=== PATIENT | female | born 1955 | race African-American/Black ===

== ENCOUNTER 2018-11-07 08:03 | Inpatient (IN) | payer BC ==
[2018-11-07] MEDS ORDERED: Midazolam HCl 5 mg/ml Vial ONE (08:09)
[2018-11-07] MEDS ORDERED: Succinylcholine Chloride 20 MG/ML 10 ml SYRINGE FS ONE (08:09)
[2018-11-07] MEDS ORDERED: Atropine Sulfate 1 mg/10 ml Syringe ONE (08:22)
[2018-11-07] MEDS ORDERED: Norepinephrine 8 MG/0.9% NS 250 ML ONE ×2 (08:31→18:17)
[2018-11-07 08:37] LABS: Hemoglobin 13.2 g/dL (12.0-16.0); Mean Corpuscular HGB CONC 31.1 g/dL (32.0-36.0); Mean Corpuscular Hemoglobin 29.3 pg (27.0-31.0); Mean Corpuscular Volume 94.4 fL (78.0-98.0); Mean Platelet Volume 7.4 fL (7.4-10.4); Platelet Count 279 thou/uL (130-400); RBC Distribution Width 12.5 % (11.5-14.5); Red Blood Cell (RBC) Count 4.51 mill/uL (4.20-5.40); White Blood Cell (WBC) Count 17.2 thou/uL (4.8-10.8)
[2018-11-07] MEDS ORDERED: EPINEPHrine 1 MG, Admixture Fee 1 EACH in Dextrose 5% in Water 250 ML IVPB SCH (08:45)
[2018-11-07 08:47] LABS: ALT (SGPT) 89 U/L (8-55); AST (SGOT) 108 U/L (5-34); Albumin 3.6 g/dL (3.4-4.8); Alkaline Phosphatase 62 U/L (40-150); Anion Gap 19 mmol/L (10-20); BUN (Urea Nitrogen) 10 mg/dL (9.8-20.1); Bilirubin, Total 0.6 mg/dL (0.2-1.2); Calc. Creatinine Clearance 0 mL/min (70-130); Calcium 8.8 mg/dL (7.8-10.44); Carbon Dioxide 19 mmol/L (23-31); Chloride 105 mmol/L (98-107); Estimated GFR-MDRD 62; Globulin 3.4 g/dL (2.4-3.5); Potassium 3.7 mmol/L (3.5-5.1); Sodium 139 mmol/L (136-145)
[2018-11-07 08:51] LABS: Glucose 229 mg/dL (80-115)
[2018-11-07 08:56] LABS: Lymphocytes 80 % (21-51); MDiff Complete? YES; Monocytes 4 % (0-10); Neutrophil 16 % (42-75); Platelet Morphology Comment Appears Adequate
[2018-11-07 09:07] LABS: Actual Bicarbonate (HCO3a) 16.9 mEq/L (22-28); Analyzer IN Cardio ER; Base Excess (BEa) -15.3 mEq/L (-2.0 to +3.0); Calcium, Ionized 1.04 mmol/L (1.12-1.30); Carboxyhemoglobin (COHb) 0.3 gm% (0.0-3.0); Hemoglobin (Hb) 12.3 g/dL (12.0-16.0); Potassium - ABG Lab 3.46 mmol/L (3.70-5.30); Puncture Site RBA; pH, Arterial 6.98 (7.35-7.45)
--- NOTE | 2018-11-07 09:10 | RAD ---
CHEST 1 VIEW: Date: 11/07/18 HISTORY: Altered mental status, unresponsive. FINDINGS: Right central line and endotracheal tubes are in place. Heart size is within normal limits. No conflu ent pneumonia, overt edema, pleural effusion, pneumothorax, or other significant acute process. IMPRESSION: Unremarkable chest. Endotracheal tube and right central line in place. POS: [facility]
[2018-11-07 10:32] LABS: Bilirubin Negative (Negative); Blood, Urine Large (Negative); Clarity CLOUDY (Clear); Glucose, Urine (Dipstick) 500 mg/dL (Negative); Leukocyte Negative (Negative); Nitrite Negative (Negative); Protein, Urine (Dipstick) > or equal to 300 mg/dL (Neg-Trace); Specific Gravity, Urine 1.021 (1.002-1.036); Urobilinogen 0.2 mg/dL (0.2-1.0)
[2018-11-07 10:35] LABS: Bacteria/HPF 1+ HPF (None Seen)
[2018-11-07 10:37] LABS: Pathc Cast-AUWi Flag 3.55 (0-2.49)
--- NOTE | 2018-11-07 10:38 | CT ---
CT BRAIN WITHOUT CONTRAST: History: Altered mental status. Fall. FINDINGS: No evidence of infarct, hemorrhage, midline shift, or abnormal extraaxial fluid collections are seen. The ventricular size is normal and the basilar cisterns patent. The bony calvarium is intact. There is mucosal disease in the paranasal sinuses. IMPRESSION: No CT evidence of acute intracranial process. POS: [facility]
--- NOTE | 2018-11-07 10:41 | CT ---
CT CERVICAL SPINE WITHOUT CONTRAST: Date: 11/07/18 INDICATION: Altered mental status and fall. FINDINGS: The patient is intubated with gastric catheter placement. There is subsegmental volume loss involving the lung apices. Craniocervical junction appears within normal limits. There is multilevel mild to m oderate spondylosis of the cervical spine. No acute fracture or subluxation is demonstrated. IMPRESSION: No acute osseous abnormality. POS: [facility]
[2018-11-07] MEDS ORDERED: Fentanyl 100 MCG/2 ML VIAL ONE ×3 (10:47→12:21)
[2018-11-07 10:48] LABS: INR-International Normal Ratio 1.2; PTT 38.2 SEC (22.9-36.1); Prothrombin Time 15.2 SEC (12.0-14.7)
[2018-11-07 10:48] LABS: Hyaline Casts/LPF NONE SEEN LPF (0-3 Hyaline); Other Casts/LPF None Seen LPF (0-3 Hyaline)
[2018-11-07 10:49] LABS: Renal Epithelial 0-3 HPF (0-3); Transitional Epithelial 0-3 HPF (0-3)
--- NOTE | 2018-11-07 10:51 | CT ---
CTA CHEST WITH CONTRAST CT ABDOMEN AND PELVIS WITH CONTRAST CT THORACIC AND LUMBAR SPINE: Technique: Multiple axial tomograms were obtained through the chest following pulmonary angio protoco l with multiplanar reconstruction and 3D post processing. Indications: Syncope with fall. FINDINGS: There are linear shaped pulmonary emboli in both main pulmonary arteries. Pulmonary emboli extends in to both intralobular pulmonary arteries with extension into bilateral lower lobe pulmonary arteries. Extension into right middle and right upper lobe pulmonary arteries. Lung guzman show focal parenchymal opacity in the peripheral left upper lobe which could represent at electasis or patchy infiltrate. There is vascular congestion. Mild bibasilar atelectasis. 1.0 cm pleural based nodule right upper lobe with central calcification. There is a focal mass like density in the right lung base posteriorly, worrisome for neoplasm which m easures up to 2.0 cm axial plane. Nonspecific nodular density in the left lung base adjacent to the p leural surface measures 1.0 cm, possibly representing pleural based atelectasis. There is mediastinal and right hilar adenopathy. IMPRESSION: 1. Bilateral pulmonary emboli. 2. Mass density in the posterior right lung base, worrisome for neoplasm. 3. Mediastinal and hilar adenopathy. 4. Focal parenchymal density NEHA as described above, possibly representing a focal atelectasis. There are chronic lung changes as described. CT ABDOMEN AND PELVIS WITH CONTRAST: Technique: Multiple axial tomograms were obtained through the abdomen and pelvis with IV enhancement. Indications: Fall with injury. Altered mental status. FINDINGS: Exam is limited due to arm position which produces artifact. The liver is heterogeneous. Spleen is unremarkable. Pancreas is unremarkable. Kidneys are unremarkable. Aorta is normal caliber. Bowel loops are unremarkable. Uterus is enlarged with myometrial calcifications consistent with calcified fibroids. No adenopathy s een. No free fluid. No osseous abnormality. IMPRESSION: 1. Heterogeneous liver. Correlate with liver function test. 2. No acute intraabdominal process. CT THORACIC/LUMBAR SPINE: FINDINGS: CT of the mid and lower thoracic spine and lumbar spine obtained. The visualized vertebral bodies maintain normal height and alignment. Degenerative changes are seen a t L5-S1. No compression or evidence of acute fracture identified. IMPRESSION: No acute spine fracture identified. Findings related to Dr. Neumann. Code CR POS: OFF
[2018-11-07] MEDS ORDERED: Heparin 10,000 UNITS/ 10 ML VIAL SLOW IVP SCH ×2 (11:00→11:15)
[2018-11-07] MEDS ORDERED: Sodium Bicarb 50 MEQ/50 ML Abboject 8.4% SYRINGE IVP SCH (11:15)
[2018-11-07] MEDS ORDERED: Heparin 25,000 units/D5W 500 ML IVPB SCH (11:15)
[2018-11-07] MEDS ORDERED: Sodium Bicarb 50 MEQ/50 ML VIAL ONE (11:22)
[2018-11-07] MEDS ORDERED: ISOVUE-370 76%-LOCM 1 ML ONE (11:29)
[2018-11-07] MEDS ORDERED: methylPREDNISolone Sod Succ/PF 125 MG/2 ML VIAL IVP SCH (12:00)
--- NOTE | 2018-11-07 12:02 | CON ---
DATE OF CONSULTATION: 11/07/2018 HISTORY OF PRESENT ILLNESS: Cherise Macias is a 63-year-old female, who was brought in by EMS after she was found down at home by her granddaughter. Daughter from [place] arrived. She had a mass in the area of the left knee, which was biopsied, found to be sarcoma. She went to [facility] for further workup and found to have a right lung nodule for which she underwent a biopsy on Tuesday last week, four days ago. She then was at her house. According to the daughter, granddaughter found that she was unresponsive and blood coming out of the mouth. 911 ambulance was called and they came to the ER, where apparently she was found to be in pulseless electrical activity rhythm. Please review Dr. Neumann, ER physician's extensive note. She now received multiple rounds of epinephrine. She was started on epinephrine drip and Levophed drip. CT chest shows bilateral pulmonary emboli/lung mass right We were in the process of giving 10 mgs of_ tPA, she is already on heparin drip. PAST MEDICAL HISTORY: The daughter says the past medical history is pertinent for hypothyroidism, hypertension, hyperlipidemia. PAST SURGICAL HISTORY: Previous surgeries of colon. Biopsy of the leg. Recent lung biopsy. CHRONIC MEDICATIONS: 1. Spironolactone 25. 2. Tramadol 50. HABITS: Tobacco, none. ALLERGIES: NONE. 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 REVIEW OF SYSTEMS: Otherwise unobtainable. PHYSICAL EXAMINATION: VITAL SIGNS: In the ER, she is intubated on the vent. Blood pressure is still 90/80 on the Levophed. Pulse is 80, respiratory rate is 20. HEENT: Pupils are equal. She is having some tonic activity. CHEST: Bilateral rhonchi. CARDIAC: Sinus tach. ABDOMEN: Soft. NEUROLOGIC: Unresponsive. LABORATORY DATA: White count is 17,000, H and H are 13 and 42, platelet count is normal. She has 16 neutrophils. PO2 was 497, pCO2 Lytes are normal. Lactic acid elevated. Glucose 229. IMPRESSION: 1. Bilateral pulmonary emboli. 2. Status post cardiopulmonary arrest, pulseless electrical activity. 3. Probably anoxic injury. 4. 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 Await results from [facility] biopsy. 5. Low-dose tPA, IV heparin. Neb treatments, steroids supportive care. 6. Transfer to the ICU. Prognosis is guarded. Serial exam. We will get neurological input in the next 24 to 48 hours along with an EEG. This is a 45-minute critical care time. Job ID: [id number] [facility]
--- NOTE | 2018-11-07 12:17 | HP ---
CHIEF COMPLAINT: Loss of consciousness. 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 In her workup, she also was noted to have a right lung nodule that was concerning for the possibility of either a new primary or metastatic lesion and the recommendation was for biopsy. The patient had the biopsy performed by Inter[facility] Radiology 5 days ago. The patient was actually at home this morning with her granddaughter. She was holding I believe her great grandchild and had put some food in the microwave, walked back into her room when her granddaughter heard grunting and saw the baby crawling on the floor and crying. When she went in to investigate, she found the patient lying on the floor unconscious with blood coming from her mouth. She called 911. On arrival, apparently the patient was breathing spontaneously and had a pulse. She was transported to the emergency department and when coming through the doors, went into [facility] and coded. She required CPR and code drugs and did ultimately get return of spontaneous circulation, but is requiring pressors. She apparently responded better to epinephrine and Levophed. The patient has not recovered any form of consciousness since that time. I did speak with Dr. Macdonald. I spoke with her daughter and Dr. Macdonald faxed some records from [facility] to assist with gathering the history. REVIEW OF SYSTEMS: Unobtainable. PAST MEDICAL HISTORY: Per the records, the patient has a history of hypertension, hyperlipidemia, and hypothyroidism. PAST SURGICAL HISTORY: Notable for colon polyps endoscopically resected. She has had the biopsy of the knee lesion and the lung lesion. FAMILY HISTORY: Records indicate her father is living and her mother is living with hypertension. SOCIAL HISTORY: The patient is a nonsmoker. Her daughter is here from [place]. However, the daughter states that she is unable to even go in the room and see her mother in this condition. CURRENT MEDICATIONS: 1. Tramadol p.r.n. 2. Spironolactone 25 mg p.o. daily. ALLERGIES: NONE. PHYSICAL EXAMINATION: VITAL SIGNS: Most recent BP 192/78, pulse 95, temperature is 97.0, and respirations 24. GENERAL APPEARANCE: Age-appropriate female, who is intubated. She is not interactive. She appears unresponsive. She does have some spontaneous movement of her feet, which is more of a jerking or twitching and occasionally will raise her eyelids as well. HEENT: ET tube is in place. The patient's pupils are mid point and sluggish. Her eyes do not track nor focus. NECK: Supple and symmetric. HEART: Regular without murmurs. Borderline tachycardic. LUNGS: Clear bilaterally with no wheeze or rales. ABDOMEN: Soft and nondistended. Diminished bowel sounds. No masses or organomegaly. EXTREMITIES: There is a large lesion with some slight dark discoloration over the medial aspect of the left knee. This is not erythematous or inflamed. It is approximately 5 x 8 inches in size. There is no other cyanosis, clubbing, or edema. LABORATORY DATA: White count 17.2, hemoglobin 13.2, platelets 279, neutrophils 16, and lymphocytes 80. INR 1.2 and PTT 38.2. ABG, pH was 6.98, pCO2 was 73, and pO2 was 497. Sodium 139, potassium 3.7, chloride 105, CO2 of 19, BUN 10, creatinine 0.08, GFR 62, glucose 229, lactic acid 9.2, calcium 8.8, AST 108, and ALT 89. Troponin 0.01. Urinalysis shows significant protein and glucose, large blood, 11 to 20 red cells, greater than 50 white cells, 4 to 6 epithelials, and 1+ bacteria. Chest x-ray notable for the ET tube in central line. CT of the brain, no intracranial process. CT chest, abdomen, and pelvis shows bilateral pulmonary emboli. Mass density in the posterior right lung base consistent with neoplasm. Mediastinal and hilar lymphadenopathy. Focal parenchymal density in the left upper lobe, possibly representing atelectasis of the liver, is noted to be heterogeneous. CT of the C-spine was unremarkable. IMPRESSION AND PLAN: 1. Cardiac arrest. The patient had a cardiac arrest on arrival to the emergency department. She has had associated hypoxic respiratory failure. She is intubated and on pressors. She did have a return of spontaneous circulation and apparently was breathing spontaneously as well. She will be admitted to the ICU. Pulmonary/Critical Care will be consulted. 2. Bilateral pulmonary emboli. Dr. Strong has recommended a dose of tissue plasminogen activator. She was subsequently started on anticoagulation per his recommendations. 3. Hypertension. The patient is currently hypotensive due to the cardiac arrest. We will continue to monitor. 4. Hyperglycemia. We will start Accu-Cheks and sliding scale insulin. 5. Sarcoma of the left knee, high-grade, undifferentiated. The treatment has not been initiated for that as of yet. 6. Right lung mass, unclear if this was metastatic disease or a second primary biopsy was performed. No results of that have been discussed with the family as of yet. 7. Possible urinary tract infection. The patient is covered with antibiotics. We will continue to follow up on cultures. 8. Elevated liver enzymes with a heterogeneous liver. Etiology is unclear. Secondary issue to be investigated when she is more stabilized. 9. Disposition. Unfortunately, the patient appears to possibly have suffered some anoxic brain injury. We will continue supportive care and reassess in 24 hours. The patient's daughter is having a difficult time as expected. She cannot go in the room and see the patient in this condition. We will consult Palliative Care to see if they can be a support to her and the remainder of the patient's family. Job ID: [id number]
[2018-11-07] MEDS ORDERED: Bacteriostatic Water 30 ML VIAL FS PRN (14:47)
[2018-11-07] MEDS ORDERED: EPINEPHrine 1 MG/10 ML Abboject SYRINGE ONE (15:00)
[2018-11-07] MEDS ORDERED: Sodium Bicarb 50 MEQ/50 ML Abboject 8.4% SYRINGE ONE (15:00)
[2018-11-07] MEDS: Cefepime 1 GM in Sodium Chloride 0.9% 100 ML IVPB SCH (15:04)
[2018-11-07] MEDS ORDERED: Lorazepam 2 MG/ML VIAL ONE (16:01)
[2018-11-07 16:02] LABS: Lactic Acid 3.6 mmol/L (0.5-2.2)
[2018-11-07] MEDS ORDERED: Lorazepam 2 MG/ML VIAL SLOW IVP SCH (16:15)
[2018-11-07] MEDS ORDERED: Hydrocortisone Sod Succ/PF 100 mg/2 ml Vial IVP SCH (18:00)
[2018-11-07] MEDS: methylPREDNISolone Sod Succ 40 MG VIAL IVP SCH ×2 (18:24→22:47)
[2018-11-07] MEDS ORDERED: Norepinephrine 8 MG/250 ML BAG IVPB PRN (18:24)
[2018-11-07 18:40] LABS: PTT Greater than 250.0 SEC (22.9-36.1)
[2018-11-07] MEDS: Famotidine/PF 20 mg/2ml Vial SLOW IVP SCH (21:05)
[2018-11-07 21:17] LABS: PTT 183.1 SEC (22.9-36.1)
[2018-11-07] MEDS ORDERED: Acetaminophen 650 MG Suppository PR PRN (21:51)
[2018-11-07] MEDS ORDERED: Acetaminophen 1,000 MG in Premix Bag 1 BAG IVPB SCH (22:00)
[2018-11-08] MEDS: Cefepime 1 GM in Sodium Chloride 0.9% 100 ML IVPB SCH ×2 (03:02→14:19)
[2018-11-08] MEDS: Lorazepam 2 MG/ML VIAL SLOW IVP PRN ×2 (03:50→23:49)
[2018-11-08 05:20] LABS: #Lymphocytes 0.9 thou/uL (1.20-3.40); #Monocytes 0.6 thou/uL (0.11-0.59); #Neutrophils 14.5 thou/uL (1.40-6.50); %Eosinophils 0.1 % (0.0-10.0); %Lymphocytes 5.6 % (21.0-51.0); %Monocytes 3.7 % (0.0-10.0); %Neutrophils 90.5 % (42.0-75.0); Hemoglobin 12.6 g/dL (12.0-16.0); Mean Corpuscular HGB CONC 32.7 g/dL (32.0-36.0); Mean Corpuscular Hemoglobin 29.4 pg (27.0-31.0); Mean Platelet Volume 6.7 fL (7.4-10.4); Platelet Count 237 thou/uL (130-400); RBC Distribution Width 12.7 % (11.5-14.5); Red Blood Cell (RBC) Count 4.29 mill/uL (4.20-5.40)
[2018-11-08 05:53] LABS: Anion Gap 15 mmol/L (10-20); BUN (Urea Nitrogen) 15 mg/dL (9.8-20.1); Calc. Creatinine Clearance 78 mL/min (70-130); Calcium 8.3 mg/dL (7.8-10.44); Carbon Dioxide 23 mmol/L (23-31); Chloride 107 mmol/L (98-107); Estimated GFR-MDRD 61; Glucose 148 mg/dL (80-115); Sodium 142 mmol/L (136-145)
[2018-11-08 05:57] LABS: Potassium 2.9 mmol/L (3.5-5.1)
[2018-11-08] MEDS ORDERED: Potassium Chloride 40 MEQ in Premix Bag 1 BAG IVPB SCH (06:15)
[2018-11-08] MEDS: methylPREDNISolone Sod Succ 40 MG VIAL IVP SCH ×4 (06:23→23:18)
[2018-11-08 07:03] LABS: Base Excess (BEa) 0.8 mEq/L (-2.0 to +3.0); Calcium, Ionized 1.09 mmol/L (1.12-1.30); Carboxyhemoglobin (COHb) 0.8 gm% (0.0-3.0); Hemoglobin (Hb) 14.5 g/dL (12.0-16.0); O2 Tension (PaO2) 97.2 mmHg (> 80.0); Potassium - ABG Lab 2.89 mmol/L (3.70-5.30)
[2018-11-08 07:04] LABS: CO2 Tension 23.4 mmHg (35.0-45.0); pH, Arterial 7.57 (7.35-7.45)
[2018-11-08 07:05] LABS: Puncture Site LR
[2018-11-08] MEDS: Famotidine/PF 20 mg/2ml Vial SLOW IVP SCH ×2 (07:57→20:56)
[2018-11-08] MEDS: Enoxaparin Sodium 100 MG/ML SYRINGE SC SCH ×2 (08:17→20:56)
--- NOTE | 2018-11-08 08:28 | RAD ---
CHEST ONE VIEW: HISTORY: Respiratory insufficiency. COMPARISON: 11/07/2018 FINDINGS: Life support tubes remain in place. Bilateral vascular congestion. No new confluent lobar pneumonia . IMPRESSION: 1. Bilateral vascular congestion. 2. No new confluent pneumonia. 3. Probable small pleural effusions. Continued short-term followup. POS: OFF
[2018-11-08] MEDS: Pot Chloride/Pot Bicarb/Cit Ac 25 mEq Effervescent Tablet PO SCH (08:49)
[2018-11-08] MEDS ORDERED: Prevnar 13-Val Conj/PF 0.5 ML SYRINGE IM ONE (09:00)
[2018-11-08] MEDS ORDERED: Enoxaparin Sodium 40 MG/0.4 ML SYRINGE SC SCH (09:00)
[2018-11-08] MEDS ORDERED: Enoxaparin Sodium 80 MG/0.8 ML SYRINGE SC SCH ×2 (09:00)
--- NOTE | 2018-11-08 09:34 | PRG ---
DATE OF SERVICE: 11/08/2018 SUBJECTIVE: Cherise Veloz this morning intubated in the vent, unresponsive, no sedation. Respiratory rate is set at 24. She is not assisting. Pupils are 2 mm. Eyes are deviated upwards. She is doing some decerebrate posturing. OBJECTIVE: VITAL SIGNS: Blood pressure 131/76, pulse 80. Afebrile. Sats 100% . CHEST: Decreased breath sounds. Bilateral rhonchi. CARDIAC: Sinus tach. ABDOMEN: Soft without masses. LABORATORY DATA:PTT_ was 237 this morning. PO2 was 97, pCO2 23, pH 7.57 at a rate of 24, 40%. Potassium is 2.9, otherwise glucose is normal. Magnesium is low at 1.5. X-ray shows haziness in the left chest. IMPRESSION: 1. Bilateral pulmonary emboli. 2. Status post PEA. 3. Sarcoma with possible mets to the lung. 4. Severe anoxic injury. _vent being adjusted. We will start nutrition. Palliative care on board. Await results of Neurology and EEG. Prognosis is grave. In the meantime, supportive care, PT. One-half hour of critical time. Job ID: [id number] [facility]
--- NOTE | 2018-11-08 10:18 | PRG ---
DATE OF SERVICE: 11/08/2018 SUBJECTIVE: The patient is seen and examined at the bedside. She is not sedated. She does not respond to me at all. She is orally intubated. OBJECTIVE: VITAL SIGNS: Blood pressure is 117/61, pulse is 77, respiratory rate is 17, O2 saturation is 100% on the vent. HEENT: Her pupils are quite small. They are not very reactive to light. Sclerae nonicteric. Conjunctivae pinkish. LUNGS: Breath sounds diminished at both bases. HEART: S1 and S2 normal. No S3. No S4. ABDOMEN: Soft and nondistended. Bowel sounds present. EXTREMITIES: No clubbing, cyanosis, or edema. NEUROLOGICAL: She does not respond to my stimuli. Her all 4 extremities are flaccid. There is no any motor activity present during my visit of spontaneous etiology. LABORATORY DATA: White count of 16.2, hemoglobin of 12.6, hematocrit 38.6, platelet count is 237,000. APTT 78.6. ABGs showed pH of 7.57, pCO2 of 23.4, and pO2 of 97.2. Sodium of 142, potassium 2.9, chloride 107, CO2 of 23, BUN 15, creatinine 1.09, glucose 148, magnesium 1.5. Microbiology, none. IMPRESSION: 1. Status post cardiopulmonary arrest. 2. Bilateral pulmonary emboli. 3. Sarcoma with possible metastasis to the lung. Apparently, the patient had biopsy done at [facility] a few days ago. 4. Probably anoxic injury. PLAN: The patient will remain in intensive care unit. We will continue her current regimen. She was just switched to Lovenox by Dr. Sanchez Strong. As she was given Ativan IV push for possible seizure activity during the night, we will continue her Keppra IV. Neurology consultation is pending. We will continue steroids IV and cefepime 1 g every hours. Job ID: [id number]
[2018-11-08] MEDS: Sodium Chloride 0.9% 1,000 ML IV SCH (14:55)
[2018-11-08] MEDS ORDERED: Potassium Bicarbonate/Cit Ac 25 MEQ TAB PO SCH (22:15)
[2018-11-08] MEDS ORDERED: Pot Chloride/Pot Bicarb/Cit Ac 25 mEq Effervescent Tablet PO SCH (22:15)
[2018-11-09] MEDS: Cefepime 1 GM in Sodium Chloride 0.9% 100 ML IVPB SCH ×2 (02:38→14:07)
[2018-11-09] MEDS ORDERED: Propofol 1,000 MG/100 ML VIAL IV ONE (03:00)
[2018-11-09] MEDS ORDERED: Propofol 1,000 MG/100 ML VIAL IV PRN (03:01)
[2018-11-09] MEDS ORDERED: Propofol BOLUS 1,000 MG/100 ML VIAL IV PRN (03:01)
[2018-11-09 05:16] LABS: Band 1 % (5-11); Hemoglobin 12.3 g/dL (12.0-16.0); Lymphocytes 2 % (21-51); MDiff Complete? YES; Mean Corpuscular HGB CONC 33.5 g/dL (32.0-36.0); Mean Corpuscular Volume 89.8 fL (78.0-98.0); Mean Platelet Volume 7.4 fL (7.4-10.4); Monocytes 1 % (0-10); Neutrophil 96 % (42-75); Platelet Count 255 thou/uL (130-400); Platelet Morphology Comment Appears Adequate; RBC Distribution Width 12.8 % (11.5-14.5); RBC Morphology Normal; Red Blood Cell (RBC) Count 4.09 mill/uL (4.20-5.40)
[2018-11-09 05:26] LABS: Anion Gap 14 mmol/L (10-20); BUN (Urea Nitrogen) 15 mg/dL (9.8-20.1); Calc. Creatinine Clearance 88 mL/min (70-130); Calcium 8.6 mg/dL (7.8-10.44); Carbon Dioxide 24 mmol/L (23-31); Chloride 109 mmol/L (98-107); Estimated GFR-MDRD 75; Glucose 159 mg/dL (80-115); Potassium 3.8 mmol/L (3.5-5.1); Sodium 143 mmol/L (136-145)
[2018-11-09 06:32] LABS: Actual Bicarbonate (HCO3a) 24.4 mEq/L (22-28); Base Excess (BEa) 1.2 mEq/L (-2.0 to +3.0); CO2 Tension 34.5 mmHg (35.0-45.0); Calcium, Ionized 1.13 mmol/L (1.12-1.30); Potassium - ABG Lab 3.88 mmol/L (3.70-5.30); pH, Arterial 7.47 (7.35-7.45)
[2018-11-09 07:19] LABS: ALV-art Gradient 157.075 (0-20); Puncture Site LRA
[2018-11-09] MEDS: methylPREDNISolone Sod Succ 40 MG VIAL IVP SCH ×4 (07:19→23:55)
--- NOTE | 2018-11-09 07:41 | RAD ---
Exam: Chest one view: HISTORY: Respiratory insufficiency COMPARISON: 11/08/2018 FINDINGS: Life support tubes remain in place. Bilateral vascular congestion with some scattered interstitial an d minimal alveolar opacity changes in both lungs somewhat more prominent than on the 11/08/2018 study and definitely more marked than on the 11/07/2018 study. No new confluent lobar pneumonia. IMPRESSION: Progressive vascular congestion and interstitial and alveolar opacity changes particularly in the mid and lower lung zones including the left base. Continued short-term follow-up.
--- NOTE | 2018-11-09 08:30 | PRG ---
DATE OF SERVICE: 11/09/2018 SUBJECTIVE: This morning intubated in the vent. She was agitated last night with elevated heart rate and blood pressure. She was on diprivan. OBJECTIVE: VITAL SIGNS: Blood pressure is still elevated at 170/90, pulse is 100, saturations 100%, and respirations are 22. I's and O's have been good, 2877 in and 2780 out. NEUROLOGICAL: Pupils are equal. She is decerebrating. CHEST: Extensive rhonchi. CARDIAC: Sinus tach. ABDOMEN: Soft. LABORATORY DATA: White count 20,000, H and H 12 and 36, platelet count is normal. She had a pO2 of 85, pCO2 35, pH 7.47, rate of 14, 40%. Lytes are normal. IMPRESSION: 1. Status post pulseless electrical activity with anoxic brain injury, poor EEG findings. 2. Bilateral pulmonary emboli. 3. Sarcoma with probably _lung met// pleural effusion and hypertension. 4. Starting low-dose Norvasc and home medication, still on Keppra. Continue supportive care. We will try minimize sedation as possible. Still awaiting input from Neurology. 5. Prognosis, remains grave. We will follow. One-half hour of critical time. Job ID: [id number] [facility]
[2018-11-09] MEDS: Famotidine/PF 20 mg/2ml Vial SLOW IVP SCH ×2 (08:42→21:33)
[2018-11-09] MEDS: Potassium Bicarbonate/Cit Ac 25 MEQ TAB PO SCH ×2 (08:42→21:34)
[2018-11-09] MEDS: Spironolactone 25 MG TAB PO SCH (08:42)
[2018-11-09] MEDS: Enoxaparin Sodium 100 MG/ML SYRINGE SC SCH ×2 (08:43→21:33)
[2018-11-09] MEDS ORDERED: Amlodipine 5 MG TAB PO SCH (09:00)
[2018-11-09] MEDS ORDERED: Pot Chloride/Pot Bicarb/Cit Ac 25 mEq Effervescent Tablet PO SCH (09:00)
[2018-11-09] MEDS: Sodium Chloride 0.9% 1,000 ML IV SCH (12:37)
--- NOTE | 2018-11-09 15:14 | PRG ---
DATE OF SERVICE: 11/09/2018 SUBJECTIVE: The patient is seen and examined at the bedside. She is still in the same room in A5 ICU. She is not sedated. She does not show any improvement. She is not waking up. There were no any unexpected events overnight. OBJECTIVE: VITAL SIGNS: Blood pressure is 177/90, pulse is 97, respiratory rate is 20, O2 saturation is 99. She is on a ventilator. She is not sedated. GENERAL: There is no any contact with the patient. She is quite flaccid in her 4 extremities. She is orally intubated. HEENT: Her pupils are normal size. They do not respond to the light much. LUNGS: Clear. HEART: S1 and S2 normal. ABDOMEN: Soft, nondistended. EXTREMITIES: No clubbing, cyanosis, or edema. Did not show any improvement in the last 24 hours. LABORATORY DATA: Labs showed white count of 23,000, hemoglobin 12.3, hematocrit 36.7, platelet count is 255, neutrophils 96%. ABGs, pH of 7.47, pCO2 of 34.5, pO2 of 85.0, base excess is 1.2. Sodium of 143, potassium 3.8, chloride 109, CO2 of 24, BUN 15, creatinine 0.91, glycemia 159, calcium 8.6. IMAGING STUDIES: Chest x-ray was done this morning and it showed progressive vascular congestion and interstitial alveolar opacity changes particularly in the mid and lower lung zones involving the left base. IMPRESSION: 1. Status post cardiopulmonary arrest. 2. Bilateral pulmonary emboli. 3. Sarcoma with possible metastasis to the lung, status post biopsy at [facility]. 4. Probably anoxic injury. PLAN: We are going to continue dose of Lovenox. We will continue her antibiotic, which is cefepime. We will continue Solu-Medrol IV q.6 hours. We will continue Keppra IV, and prognosis is very poor. Job ID: [id number]
--- NOTE | 2018-11-09 17:28 | EEG ---
Referring Physician: Bennie GOMEZ EEG # [id number] TEST TYPE: ROUTINE PORTABLE INPATIENT REPORT: AN EEG USING THE INTERNATIONAL TEN-TWENTY SYSTEM OF ELECTRODE PLACEMENT WAS PERFORMED. The background activity consists of high amplitude bursts of dysrhythmic discharges seen over both hemispheres followed by periods of severe cerebral suppression. This continued throughout the study. Photic stimulation was unremarkable. IMPRESSION: THIS EEG IS CONSISTENT WITH A BURST-SUPPRESSION PATTERN WHICH CARRIES A VERY POOR PROGNOSIS FOLLOWING ANOXIC BRAIN INJURY. Car Cleaner: SUHA Pecan Huller: EEG.[email or web address] GUTIERREZ
--- NOTE | 2018-11-09 22:04 | CON ---
DATE OF CONSULTATION: 11/09/2018 CONSULTING PHYSICIAN: Hospitalist Service. IMPRESSION: Anoxic brain injury, likely leading to a chronic vegetative state. PLAN: As per the family's wishes. HISTORY OF PRESENT ILLNESS: Ms. Veloz is a 63-year-old woman who came in after a cardiac arrest at home. She was resuscitated and intubated. Unfortunately, she has failed to regain consciousness. Cardiovascular status has been stable metabolically. She has also been reasonably stable as well. Had an EEG done yesterday which showed a burst suppression pattern. PHYSICAL EXAMINATION: On exam, she has a positive blink and corneal reflex. She has a gag response. She has extensor posturing to pain. She has some spontaneous respirations. She is not having any seizure-like activity. Vital signs have otherwise been stable. SUMMARY: This is a 63-year-old woman with anoxic brain injury with burst suppression pattern. She has maintained some brainstem reflexes. She is probably going to enter a chronic vegetative state with continued support. Job ID: [id number]
[2018-11-10] MEDS: Cefepime 1 GM in Sodium Chloride 0.9% 100 ML IVPB SCH ×2 (02:20→14:39)
[2018-11-10 05:05] LABS: Anion Gap 14 mmol/L (10-20); BUN (Urea Nitrogen) 19 mg/dL (9.8-20.1); Calc. Creatinine Clearance 92 mL/min (70-130); Carbon Dioxide 24 mmol/L (23-31); Chloride 106 mmol/L (98-107); Estimated GFR-MDRD 79; Glucose 179 mg/dL (80-115); Potassium 3.7 mmol/L (3.5-5.1); Sodium 140 mmol/L (136-145)
[2018-11-10 05:14] LABS: Band 4 % (5-11); Hemoglobin 12.5 g/dL (12.0-16.0); Lymphocytes 5 % (21-51); MDiff Complete? YES; Mean Corpuscular HGB CONC 32.5 g/dL (32.0-36.0); Mean Corpuscular Hemoglobin 29.5 pg (27.0-31.0); Mean Corpuscular Volume 90.6 fL (78.0-98.0); Mean Platelet Volume 7.9 fL (7.4-10.4); Monocytes 7 % (0-10); Neutrophil 84 % (42-75); Platelet Count 284 thou/uL (130-400); RBC Distribution Width 12.8 % (11.5-14.5); Red Blood Cell (RBC) Count 4.25 mill/uL (4.20-5.40); White Blood Cell (WBC) Count 22.9 thou/uL (4.8-10.8)
[2018-11-10] MEDS: methylPREDNISolone Sod Succ 40 MG VIAL IVP SCH ×4 (06:19→23:32)
[2018-11-10 06:45] LABS: Base Excess (BEa) 0.4 mEq/L (-2.0 to +3.0); CO2 Tension 27.3 mmHg (35.0-45.0); Calcium, Ionized 1.11 mmol/L (1.12-1.30); Carboxyhemoglobin (COHb) 0.5 gm% (0.0-3.0); Hemoglobin (Hb) 12.6 g/dL (12.0-16.0); O2 Tension (PaO2) 104.1 mmHg (> 80.0); Potassium - ABG Lab 3.76 mmol/L (3.70-5.30); pH, Arterial 7.53 (7.35-7.45)
[2018-11-10 06:51] LABS: ALV-art Gradient 111.325 (0-20); Puncture Site LRA
--- NOTE | 2018-11-10 07:55 | RAD ---
XR Chest 1 View Portable History: Respiratory failure COMPARISON: Previous day FINDINGS: Mild interval improvement in the aeration of the lung guzman is seen. Line and tube placements are un changed.
--- NOTE | 2018-11-10 08:53 | PRG ---
DATE OF SERVICE: 11/10/2018 SUBJECTIVE: This morning, the patient is alert and responsive. Neurology saw the patient yesterday. Discussed with family at length that overall prognosis is poor. She has burst pattern on the EEG suggesting severe anoxic injury. OBJECTIVE: VITAL SIGNS: Blood pressure is 175/72, pulse 66, saturation 100%, and respiratory rate 23. CHEST: Bilateral rhonchi and wheezing. CARDIAC: Normal S1 and S2. No gallops. ABDOMEN: No masses. LABORATORY DATA: PO2 is 104, pCO2 27%, . Lytes are normal. DIAGNOSTIC STUDIES: X-ray shows slight cephalization. IMPRESSION: 1. Anoxic injury. 2. Pulmonary embolism. 3. Chronic obstructive pulmonary disease. 4. Seizure disorder. PLAN: At this stage, unfortunately nothing additional to offer, continue supportive care. If family continues to want everything to be done, consider a trach and PEG next week. Meantime, she is on Lovenox. I am going to consider switching over to Eliquis in the next several days. Prognosis is grave. This is a one-half hour of critical time. Job ID: [id number]
[2018-11-10] MEDS: Amlodipine 5 MG TAB PO SCH ×2 (09:54→20:32)
[2018-11-10] MEDS: Famotidine/PF 20 mg/2ml Vial SLOW IVP SCH ×2 (09:55→20:49)
[2018-11-10] MEDS: Spironolactone 25 MG TAB PO SCH (09:55)
[2018-11-10] MEDS: Enoxaparin Sodium 100 MG/ML SYRINGE SC SCH ×2 (09:55→20:34)
[2018-11-10] MEDS: Potassium Bicarbonate/Cit Ac 25 MEQ TAB PO SCH ×2 (10:00→20:49)
[2018-11-10] MEDS: Sodium Chloride 0.9% 1,000 ML IV SCH (10:24)
[2018-11-10] MEDS ORDERED: Pancrelipase DR 12000 1 CAP PER TUBE PRN (11:13)
[2018-11-10] MEDS ORDERED: Sodium Bicarbonate Tab 325 MG TAB PO PRN (11:14)
--- NOTE | 2018-11-10 13:03 | PDOC.PN ---
- Subjective Encounter Start Date: 11/10/18 Encounter Start Time: 10:15 Patient seen and examined. pt is intubated, on vent. No overnight events - Objective Resuscitation Status - Order Detail: 11/07/18 11:19 Resuscitation Status Routine Resuscitation Status: FULL: Full Resuscitation MAR Reviewed: Yes Vital Signs & Weight: Vital Signs (12 hours) Pulse Resp BP 11/10/18 12:00 20 11/10/18 10:56 74 157/81 H 11/10/18 10:00 23 H 11/10/18 09:54 64 155/73 H 11/10/18 08:00 24 H 11/10/18 06:27 66 175/72 H 11/10/18 06:00 26 H 11/10/18 04:00 25 H 11/10/18 02:26 95 11/10/18 02:00 31 H Weight Admit Weight 212 lb 15.465 oz Weight 199 lb 1.239 oz Most Recent Monitor Data Heart Rate from ECG 72 NIBP 169/78 NIBP BP-Mean 108 Respiration from ECG 20 SpO2 99 I&O: 11/09/18 11/10/18 11/11/18 06:59 06:59 06:59 Intake Total 2877.5 2264 65 Output Total 2780 2995 Balance 97.5 -731 65 Result Diagrams: 11/10/18 03:45 11/10/18 03:45 Radiology Reviewed by me: Yes (chest xray reviewed) EKG Reviewed by me: Yes (nsr) Phys Exam - Physical Examination Constitutional: NAD on vent Neck: no JVD, supple Respiratory: no wheezing, no rales, no rhonchi Cardiovascular: RRR, no significant murmur, no rub Gastrointestinal: soft, no distention, positive bowel sounds Musculoskeletal: no edema, pulses present Lymphatic: no nodes Skin: no rash, normal turgor Dx/Plan (1) Acute respiratory failure with hypoxemia Code(s): J96.01 - ACUTE RESPIRATORY FAILURE WITH HYPOXIA Status: Acute (2) Anoxic brain damage Status: Acute (3) Bilateral pulmonary embolism Code(s): I26.99 - OTHER PULMONARY EMBOLISM WITHOUT ACUTE COR PULMONALE Status : Acute (4) Hypokalemia Code(s): E87.6 - HYPOKALEMIA Status: Acute (5) Hypomagnesemia Code(s): E83.42 - HYPOMAGNESEMIA Status: Acute (6) Lactic acidosis Code(s): E87.2 - ACIDOSIS Status: Acute (7) Leucocytosis Code(s): D72.829 - ELEVATED WHITE BLOOD CELL COUNT, UNSPECIFIED Status: Acute (8) Sudden cardiac arrest Code(s): I46.9 - CARDIAC ARREST, CAUSE UNSPECIFIED Status: Acute (9) Transaminitis Code(s): R74.0 - NONSPEC ELEV OF LEVELS OF TRANSAMNS & LACTIC ACID DEHYDRGNSE Status: Acute (10) Obesity (BMI 30.0-34.9) Code(s): E66.9 - OBESITY, UNSPECIFIED Status: Chronic - Plan cont current plan of care * continue vent support * medication reviewed as below * symptomatic treatment * continue heparin drip per protocol. * prognosis is guarded * supportive care Review of Systems - Review of Systems Other: unable to review as pt is not responsive and on vent - Medications/Allergies Allergies/Adverse Reactions: Allergies Allergy/AdvReac Type Severity Reaction Status Date / Time No Known Drug Allergies Allergy Verified 11/07/18 15:31 Medications: Current Medications Acetaminophen (Tylenol) 650 mg CO Q6H PRN PRN Reason: Fever Last Admin: 11/10/18 02:32 Dose: 650 mg Amlodipine Besylate (Norvasc) 5 mg PO BID [facility] Last Admin: 11/10/18 09:54 Dose: 5 mg Lipase/Protease/Amylase ([place] [id number]) 1 cap PER TUBE ASDIR PRN PRN Reason: TUBE OCCLUSION TX Enoxaparin Sodium (Lovenox) 100 mg SC 0900,2100 [facility] Last Admin: 11/10/18 09:55 Dose: 100 mg Famotidine (Pepcid) 20 mg SLOW IVP BID [facility] Last Admin: 11/10/18 09:55 Dose: 20 mg Epinephrine 1 mg/Miscellaneous Medication 1 each/ Dextrose/Water 251 mls @ 0 mls/hr IVPB INF [facility]; Protocol Cefepime HCl 1 gm/ Sodium (Chloride) 100 mls @ 200 mls/hr IVPB 0300,1500 [facility] Last Admin: 11/10/18 02:20 Dose: 100 mls Levetiracetam 500 mg/ Device 100 mls @ 200 mls/hr IVPB BID [facility] Last Admin: 11/10/18 09:58 Dose: 100 mls Norepinephrine Bitartrate (Levophed) 250 mls @ 0 mls/hr IVPB INF PRN; Protocol PRN Reason: KEEP SBP => 90 Sodium Chloride (Normal Saline 0.9%) 1,000 mls @ 50 mls/hr IV .Q20H [facility] Last Admin: 11/10/18 10:24 Dose: 1,000 mls Lorazepam (Ativan) 2 mg SLOW IVP Q4H PRN PRN Reason: Anxiety/Agitation Last Admin: 11/08/18 23:49 Dose: 2 mg Methylprednisolone Sodium Succinate (Solu-Medrol) 40 mg IVP Q6HR [facility] Last Admin: 11/10/18 11:59 Dose: 40 mg Potassium Bicarbonate/Citric Acid (K-Vescent) 25 meq PO BID [facility] Last Admin: 11/10/18 10:00 Dose: 25 meq Propofol (Diprivan) 1,000 mg IV INF PRN; Protocol PRN Reason: TO ACHIEVE GOAL RASS Stop: 12/09/18 03:01 Propofol (Diprivan Bolus) 20 mg IV Q5MIN PRN PRN Reason: BREAKTHROUGH AGITATION Stop: 12/09/18 03:01 Sodium Bicarbonate (Bicarbonate, Sodium) 650 mg PO ASDIR PRN PRN Reason: TUBE OCCLUSION TX Sodium Chloride (Flush - Normal Saline) 10 ml IVF Q12HR [facility] Last Admin: 11/10/18 09:55 Dose: 10 ml Sodium Chloride (Flush - Normal Saline) 10 ml IVF PRN PRN PRN Reason: Saline Flush Spironolactone (Aldactone) 25 mg PO DAILY [facility] Last Admin: 11/10/18 09:55 Dose: 25 mg Sterile Water (Bacteriostatic Water) 1 ml FS PRN PRN PRN Reason: RECONSTITUTION
[2018-11-10] MEDS ORDERED: Labetalol HCl 100 MG/20 ML VIAL SLOW IVP PRN (17:46)
[2018-11-10] MEDS: Labetalol HCl 100 MG/20 ML VIAL SLOW IVP PRN (22:14)
[2018-11-11] MEDS: Cefepime 1 GM in Sodium Chloride 0.9% 100 ML IVPB SCH ×2 (02:20→15:22)
[2018-11-11] MEDS: Sodium Chloride 0.9% 1,000 ML IV SCH ×2 (02:30→22:14)
[2018-11-11 04:54] LABS: #Lymphocytes 0.8 thou/uL (1.20-3.40); #Monocytes 1.1 thou/uL (0.11-0.59); #Neutrophils 14.9 thou/uL (1.40-6.50); %Eosinophils 0.1 % (0.0-10.0); %Lymphocytes 4.7 % (21.0-51.0); %Monocytes 6.4 % (0.0-10.0); %Neutrophils 88.8 % (42.0-75.0); Hemoglobin 12.1 g/dL (12.0-16.0); Mean Corpuscular HGB CONC 33.3 g/dL (32.0-36.0); Mean Corpuscular Hemoglobin 30.1 pg (27.0-31.0); Mean Corpuscular Volume 90.6 fL (78.0-98.0); Platelet Count 260 thou/uL (130-400); RBC Distribution Width 12.6 % (11.5-14.5); Red Blood Cell (RBC) Count 4.02 mill/uL (4.20-5.40); White Blood Cell (WBC) Count 16.7 thou/uL (4.8-10.8)
[2018-11-11 05:16] LABS: Anion Gap 14 mmol/L (10-20); BUN (Urea Nitrogen) 26 mg/dL (9.8-20.1); Calc. Creatinine Clearance 100 mL/min (70-130); Calcium 8.7 mg/dL (7.8-10.44); Carbon Dioxide 25 mmol/L (23-31); Chloride 103 mmol/L (98-107); Estimated GFR-MDRD 87; Glucose 197 mg/dL (80-115); Potassium 3.5 mmol/L (3.5-5.1); Sodium 138 mmol/L (136-145)
[2018-11-11] MEDS: methylPREDNISolone Sod Succ 40 MG VIAL IVP SCH ×3 (05:31→18:12)
[2018-11-11 06:44] LABS: Actual Bicarbonate (HCO3a) 23.9 mEq/L (22-28); Base Excess (BEa) 0.5 mEq/L (-2.0 to +3.0); CO2 Tension 34.8 mmHg (35.0-45.0); Calcium, Ionized 1.14 mmol/L (1.12-1.30); Carboxyhemoglobin (COHb) 0.9 gm% (0.0-3.0); Hemoglobin (Hb) 13.6 g/dL (12.0-16.0); O2 Tension (PaO2) 102.1 mmHg (> 80.0); Potassium - ABG Lab 3.68 mmol/L (3.70-5.30); pH, Arterial 7.46 (7.35-7.45)
[2018-11-11 06:47] LABS: Puncture Site LRA
[2018-11-11] MEDS: Spironolactone 25 MG TAB PO SCH (09:52)
[2018-11-11] MEDS: Amlodipine 5 MG TAB PO SCH ×2 (09:52→21:57)
[2018-11-11] MEDS: Enoxaparin Sodium 100 MG/ML SYRINGE SC SCH ×2 (09:53→21:58)
[2018-11-11] MEDS: Famotidine/PF 20 mg/2ml Vial SLOW IVP SCH ×2 (09:53→21:59)
[2018-11-11] MEDS: Potassium Bicarbonate/Cit Ac 25 MEQ TAB PO SCH ×2 (09:53→21:57)
--- NOTE | 2018-11-11 10:39 | PDOC.PN ---
- Subjective Encounter Start Date: 11/11/18 Encounter Start Time: 10:00 pt is on ventilator, no response, now hypertensive Patient seen and examined. No overnight events - Objective Resuscitation Status - Order Detail: 11/07/18 11:19 Resuscitation Status Routine Resuscitation Status: FULL: Full Resuscitation MAR Reviewed: Yes Vital Signs & Weight: Vital Signs (12 hours) Temp Pulse Resp BP 11/11/18 10:15 65 165/79 H 11/11/18 09:52 61 161/84 H 11/11/18 06:18 76 143/69 H 11/11/18 06:00 21 H 11/11/18 04:00 99.5 F 18 11/11/18 03:52 61 11/11/18 02:00 20 11/11/18 00:09 73 194/92 H 11/11/18 00:00 100.9 F H 23 H Weight Admit Weight 212 lb 15.465 oz Weight 3.153 oz Most Recent Monitor Data Heart Rate from ECG 60 NIBP 144/69 NIBP BP-Mean 94 Respiration from ECG 19 SpO2 100 I&O: 11/10/18 11/11/18 11/12/18 06:59 06:59 06:59 Intake Total 2274 3148 Output Total 2995 2095 Balance -721 1053 Result Diagrams: 11/11/18 03:55 11/11/18 03:55 EKG Reviewed by me: Yes (nsr) Phys Exam - Physical Examination Constitutional: NAD on vent ET tube+ Neck: no JVD, supple Respiratory: no wheezing, no rales, no rhonchi Cardiovascular: RRR, no significant murmur, no rub Gastrointestinal: soft, no distention, positive bowel sounds Musculoskeletal: no edema, pulses present Lymphatic: no nodes Skin: no rash, normal turgor Dx/Plan (1) Acute respiratory failure with hypoxemia Code(s): J96.01 - ACUTE RESPIRATORY FAILURE WITH HYPOXIA Status: Acute (2) Anoxic brain damage Status: Acute (3) Bilateral pulmonary embolism Code(s): I26.99 - OTHER PULMONARY EMBOLISM WITHOUT ACUTE COR PULMONALE Status : Acute (4) Hypokalemia Code(s): E87.6 - HYPOKALEMIA Status: Acute (5) Hypomagnesemia Code(s): E83.42 - HYPOMAGNESEMIA Status: Acute (6) Lactic acidosis Code(s): E87.2 - ACIDOSIS Status: Acute (7) Leucocytosis Code(s): D72.829 - ELEVATED WHITE BLOOD CELL COUNT, UNSPECIFIED Status: Acute (8) Sudden cardiac arrest Code(s): I46.9 - CARDIAC ARREST, CAUSE UNSPECIFIED Status: Acute (9) Transaminitis Code(s): R74.0 - NONSPEC ELEV OF LEVELS OF TRANSAMNS & LACTIC ACID DEHYDRGNSE Status: Acute (10) Obesity (BMI 30.0-34.9) Code(s): E66.9 - OBESITY, UNSPECIFIED Status: Chronic (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 Review of Systems - Review of Systems Other: unable to review due to intubated status - Medications/Allergies Allergies/Adverse Reactions: Allergies Allergy/AdvReac Type Severity Reaction Status Date / Time No Known Drug Allergies Allergy Verified 11/07/18 15:31 Medications: Current Medications Acetaminophen (Tylenol) 650 mg RI Q6H PRN PRN Reason: Fever Last Admin: 11/10/18 02:32 Dose: 650 mg Amlodipine Besylate (Norvasc) 5 mg PO BID [facility] Last Admin: 11/11/18 09:52 Dose: 5 mg Lipase/Protease/Amylase ([place] [id number]) 1 cap PER TUBE ASDIR PRN PRN Reason: TUBE OCCLUSION TX Enoxaparin Sodium (Lovenox) 100 mg SC 0900,2100 [facility] Last Admin: 11/11/18 09:53 Dose: 100 mg Famotidine (Pepcid) 20 mg SLOW IVP BID [facility] Last Admin: 11/11/18 09:53 Dose: 20 mg Epinephrine 1 mg/Miscellaneous Medication 1 each/ Dextrose/Water 251 mls @ 0 mls/hr IVPB INF [facility]; Protocol Cefepime HCl 1 gm/ Sodium (Chloride) 100 mls @ 200 mls/hr IVPB 0300,1500 [facility] Last Admin: 11/11/18 02:20 Dose: 100 mls Levetiracetam 500 mg/ Device 100 mls @ 200 mls/hr IVPB BID [facility] Last Admin: 11/11/18 09:59 Dose: 100 mls Norepinephrine Bitartrate (Levophed) 250 mls @ 0 mls/hr IVPB INF PRN; Protocol PRN Reason: KEEP SBP => 90 Sodium Chloride (Normal Saline 0.9%) 1,000 mls @ 50 mls/hr IV .Q20H [facility] Last Admin: 11/11/18 02:30 Dose: Not Given Labetalol HCl (Normodyne) 10 mg SLOW IVP Q4H PRN PRN Reason: SBP >170 Last Admin: 11/10/18 22:14 Dose: 10 mg Lorazepam (Ativan) 2 mg SLOW IVP Q4H PRN PRN Reason: Anxiety/Agitation Last Admin: 11/08/18 23:49 Dose: 2 mg Methylprednisolone Sodium Succinate (Solu-Medrol) 40 mg IVP Q6HR [facility] Last Admin: 11/11/18 05:31 Dose: 40 mg Potassium Bicarbonate/Citric Acid (K-Vescent) 25 meq PO BID [facility] Last Admin: 11/11/18 09:53 Dose: 25 meq Propofol (Diprivan) 1,000 mg IV INF PRN; Protocol PRN Reason: TO ACHIEVE GOAL RASS Stop: 12/09/18 03:01 Propofol (Diprivan Bolus) 20 mg IV Q5MIN PRN PRN Reason: BREAKTHROUGH AGITATION Stop: 12/09/18 03:01 Sodium Bicarbonate (Bicarbonate, Sodium) 650 mg PO ASDIR PRN PRN Reason: TUBE OCCLUSION TX Sodium Chloride (Flush - Normal Saline) 10 ml IVF Q12HR [facility] Last Admin: 11/11/18 09:53 Dose: 10 ml Sodium Chloride (Flush - Normal Saline) 10 ml IVF PRN PRN PRN Reason: Saline Flush Spironolactone (Aldactone) 25 mg PO DAILY [facility] Last Admin: 11/11/18 09:52 Dose: 25 mg Sterile Water (Bacteriostatic Water) 1 ml FS PRN PRN PRN Reason: RECONSTITUTION
[2018-11-11] MEDS ORDERED: Loperamide HCl 2 MG CAP PO PRN (10:40)
[2018-11-11] MEDS ORDERED: Acetaminophen 500 MG TAB PO PRN (10:40)
[2018-11-11] MEDS ORDERED: Diabetic Tussin 200 MG/10 ML UDCUP PO PRN (10:40)
[2018-11-11] MEDS ORDERED: Ondansetron PF 4 MG/2 ML Vial IVP PRN (10:40)
[2018-11-11] MEDS ORDERED: Metoclopramide HCl 10 MG/2 ML VIAL IVP PRN (10:40)
[2018-11-11] MEDS ORDERED: Senokot S 8.6-50 MG TAB PO PRN (10:40)
[2018-11-11] MEDS ORDERED: Artificial Tears 18 DROP/0.9 ML EA EYE PRN (10:40)
[2018-11-11] MEDS ORDERED: Bisacodyl 10 MG SUPP PR PRN (10:40)
--- NOTE | 2018-11-11 13:05 | PRG ---
DATE OF SERVICE: 11/11/2018 SERVICE: Pulmonary Medicine. INTERVAL HISTORY: The patient is doing great from respiratory standpoint. Breathing comfortably. There has been no interval change to her condition. Neurologically, she still has devastating lesion. PHYSICAL EXAMINATION: VITAL SIGNS: Afebrile with a T-max overnight of 100.9. Pulse 61, blood pressure 161/84, respirations 19, and saturation 100% on room air. GENERAL: The patient is comatose. HEENT: Normocephalic and atraumatic. Sclerae white. Conjunctivae pink. Oral mucosa is moist without lesions. LUNGS: Decent air entry. Rhonchi are present throughout bilateral lung guzman without prolonged expiratory phase, wheezing, or crackles. HEART: Normal rate. Regular. ABDOMEN: Soft, nontender, and nondistended. Bowel sounds are positive. MUSCULOSKELETAL: No cyanosis or clubbing. There is no pitting in the bilateral lower extremities. NEUROLOGIC: She has extensor posturing with noxious stimuli to the bilateral upper extremities and right lower extremity. With noxious stimuli to the left lower extremity, she demonstrates crossed extensor reflex which is quite feeble. Her pupils are equal, round, and reactive. She has a downward gaze preference. Doll's eyes are normal. Gag is normal, cough with deep suctioning is normal, and she is overbreathing the ventilator quite comfortably. LABORATORY DATA: WBC 16.7, hemoglobin 12.1, platelets 260,000. A pH 7.46, pCO2 of 35, pO2 of 102. Basic metabolic profile is otherwise unremarkable. Urinalysis is positive for pyuria. ASSESSMENT: 1. Acute, massive pulmonary embolism. 2. Pulseless electrical activity arrest secondary to pulmonary embolism. 3. Anoxic brain injury. 4. Burst suppression on EEG. 5. 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 DISCUSSION AND PLAN: We will continue our supportive measures and watch her neurologic function through time. At this point, the patient has been here for 4 days and continues to demonstrate findings consistent with a catastrophic injury to the brain. At this point, a meaningful recovery is essentially non-existent. That being said, she is not quite brain . The family is asking that we continue supportive measures through time. Palliative Care will continue their discussions with the family. We will continue supportive measures. Pulmonary/Critical Care will continue to follow along. CRITICAL CARE TIME: 30 minutes. Job ID: [id number] [facility]
[2018-11-11] MEDS: Labetalol HCl 100 MG/20 ML VIAL SLOW IVP PRN (15:23)
[2018-11-12] MEDS: methylPREDNISolone Sod Succ 40 MG VIAL IVP SCH ×3 (00:04→11:25)
[2018-11-12] MEDS: Cefepime 1 GM in Sodium Chloride 0.9% 100 ML IVPB SCH ×2 (02:26→14:52)
[2018-11-12] MEDS: Labetalol HCl 100 MG/20 ML VIAL SLOW IVP PRN ×2 (02:47→09:02)
[2018-11-12 06:45] LABS: Actual Bicarbonate (HCO3a) 23.4 mEq/L (22-28); Base Excess (BEa) 0.6 mEq/L (-2.0 to +3.0); CO2 Tension 31.8 mmHg (35.0-45.0); Calcium, Ionized 1.13 mmol/L (1.12-1.30); Hemoglobin (Hb) 12.6 g/dL (12.0-16.0); O2 Tension (PaO2) 74.4 mmHg (> 80.0); pH, Arterial 7.48 (7.35-7.45)
[2018-11-12 06:47] LABS: Puncture Site LRA
[2018-11-12 07:04] LABS: Anion Gap 17 mmol/L (10-20); BUN (Urea Nitrogen) 33 mg/dL (9.8-20.1); Calc. Creatinine Clearance 0 mL/min (70-130); Calcium 8.5 mg/dL (7.8-10.44); Carbon Dioxide 19 mmol/L (23-31); Chloride 103 mmol/L (98-107); Estimated GFR-MDRD Greater than 90; Glucose 193 mg/dL (80-115); Potassium 4.5 mmol/L (3.5-5.1); Sodium 134 mmol/L (136-145)
[2018-11-12 08:16] LABS: Magnesium 2.4 mg/dL (1.6-2.6); Phosphorus 2.1 mg/dL (2.3-4.7)
[2018-11-12] MEDS: Amlodipine 5 MG TAB PO SCH ×2 (08:30→20:06)
[2018-11-12] MEDS: Enoxaparin Sodium 100 MG/ML SYRINGE SC SCH ×2 (08:31→20:06)
[2018-11-12] MEDS: Spironolactone 25 MG TAB PO SCH (08:31)
[2018-11-12] MEDS: Famotidine/PF 20 mg/2ml Vial SLOW IVP SCH ×2 (08:31→20:06)
[2018-11-12] MEDS: Potassium Bicarbonate/Cit Ac 25 MEQ TAB PO SCH (08:35)
[2018-11-12 09:04] LABS: Band 4 % (5-11); Hemoglobin 13.5 g/dL (12.0-16.0); Lymphocytes 7 % (21-51); MDiff Complete? YES; Mean Corpuscular HGB CONC 30.7 g/dL (32.0-36.0); Mean Corpuscular Hemoglobin 29.2 pg (27.0-31.0); Mean Corpuscular Volume 95.2 fL (78.0-98.0); Mean Platelet Volume 9.6 fL (7.4-10.4); Neutrophil 89 % (42-75); Platelet Count 228 thou/uL (130-400); RBC Distribution Width 13.1 % (11.5-14.5); Red Blood Cell (RBC) Count 4.62 mill/uL (4.20-5.40); White Blood Cell (WBC) Count 20.9 thou/uL (4.8-10.8)
--- NOTE | 2018-11-12 10:24 | PDOC.PN ---
- Subjective Encounter Start Date: 11/12/18 Encounter Start Time: 09:40 Patient seen and examined. pt is on vent, no change in condition, No overnight events - Objective Resuscitation Status - Order Detail: 11/07/18 11:19 Resuscitation Status Routine Resuscitation Status: FULL: Full Resuscitation MAR Reviewed: Yes Vital Signs & Weight: Vital Signs (12 hours) Temp Pulse Resp BP Pulse Ox 11/12/18 10:00 22 H 11/12/18 09:02 68 180/85 H 11/12/18 08:30 82 177/89 H 11/12/18 08:00 20 11/12/18 07:11 100 11/12/18 07:00 98.5 F 11/12/18 06:25 70 157/75 H 11/12/18 06:00 22 H 11/12/18 05:00 98.1 F 11/12/18 04:00 22 H 11/12/18 02:47 78 11/12/18 02:19 78 11/12/18 02:00 20 11/12/18 00:00 98.4 F 22 H 11/11/18 22:35 74 154/76 H Weight Admit Weight 212 lb 15.465 oz Weight 3.302 oz Most Recent Monitor Data Heart Rate from ECG 64 NIBP 168/79 NIBP BP-Mean 108 Respiration from ECG 21 SpO2 100 I&O: 11/11/18 11/12/18 11/13/18 06:59 06:59 06:59 Intake Total 3148 3493 190 Output Total 2095 1995 280 Balance 1053 1498 -90 Result Diagrams: 11/12/18 06:12 11/12/18 06:12 EKG Reviewed by me: Yes (nSR) Phys Exam - Physical Examination Constitutional: NAD on vent Neck: no JVD, supple Respiratory: no wheezing, no rales, no rhonchi Cardiovascular: RRR, no significant murmur, no rub Gastrointestinal: soft, no distention, positive bowel sounds Musculoskeletal: no edema, pulses present Lymphatic: no nodes Skin: normal turgor Dx/Plan (1) Sudden cardiac arrest Code(s): I46.9 - CARDIAC ARREST, CAUSE UNSPECIFIED Status: Acute Comment: on admission, s/p ressucitation (2) Acute respiratory failure with hypoxemia Code(s): J96.01 - ACUTE RESPIRATORY FAILURE WITH HYPOXIA Status: Acute Comment: on vent (3) Anoxic brain damage Status: Acute (4) Bilateral pulmonary embolism Code(s): I26.99 - OTHER PULMONARY EMBOLISM WITHOUT ACUTE COR PULMONALE Status : Acute (5) Hypokalemia Code(s): E87.6 - HYPOKALEMIA Status: Resolved (6) Hypophosphatemia Code(s): E83.39 - OTHER DISORDERS OF PHOSPHORUS METABOLISM Status: Acute (7) Hypomagnesemia Code(s): E83.42 - HYPOMAGNESEMIA Status: Resolved (8) Lactic acidosis Code(s): E87.2 - ACIDOSIS Status: Resolved (9) Leucocytosis Code(s): D72.829 - ELEVATED WHITE BLOOD CELL COUNT, UNSPECIFIED Status: Acute (10) Transaminitis Code(s): R74.0 - NONSPEC ELEV OF LEVELS OF TRANSAMNS & LACTIC ACID DEHYDRGNSE Status: Acute (11) Obesity (BMI 30.0-34.9) Code(s): E66.9 - OBESITY, UNSPECIFIED Status: Chronic (12) Metastatic sarcoma to lung Code(s): C78.00 - SECONDARY MALIGNANT NEOPLASM OF UNSPECIFIED LUNG; C49.9 - MALIGNANT NEOPLASM OF CONNECTIVE AND SOFT TISSUE, UNSP Status: Chronic Qualifiers: Laterality: right Qualified Code(s): C78.01 - Secondary malignant neoplasm of right lung - Plan cont current plan of care, plan discussed w/ family * spoke with granddaughter bedside and updated current condition * vent as per pulmonary * will need Trach and PEG * supportive care * replace phosphorus * medication reviewed as below * symptomatic treatment. Review of Systems - Review of Systems Other: unable to review due to intubated status - Medications/Allergies Allergies/Adverse Reactions: Allergies Allergy/AdvReac Type Severity Reaction Status Date / Time No Known Drug Allergies Allergy Verified 11/07/18 15:31 Medications: Current Medications Acetaminophen (Tylenol) 650 mg OR Q6H PRN PRN Reason: Fever Last Admin: 11/10/18 02:32 Dose: 650 mg Acetaminophen (Tylenol) 650 mg PO Q6H PRN PRN Reason: Mild Pain (1-3) Amlodipine Besylate (Norvasc) 5 mg PO BID [facility] Last Admin: 11/12/18 08:30 Dose: 5 mg Lipase/Protease/Amylase ([place] [id number]) 1 cap PER TUBE ASDIR PRN PRN Reason: TUBE OCCLUSION TX Artificial Tears (Tears Naturale) 2 drop EA EYE PRN PRN PRN Reason: Dry Eyes Bisacodyl (Dulcolax) 10 mg OR DAILYPRN PRN PRN Reason: Constipation Last Admin: 11/11/18 18:17 Dose: 10 mg Clonidine (Catapres) 0.1 mg PO Q4H PRN PRN Reason: SBP Greater Than 170 Enoxaparin Sodium (Lovenox) 100 mg SC 0900,2100 [facility] Last Admin: 11/12/18 08:31 Dose: 100 mg Famotidine (Pepcid) 20 mg SLOW IVP BID [facility] Last Admin: 11/12/18 08:31 Dose: 20 mg Guaifenesin (Robitussin Sf) 200 mg PO Q4H PRN PRN Reason: Cough Cefepime HCl 1 gm/ Sodium (Chloride) 100 mls @ 200 mls/hr IVPB 0300,1500 [facility] Last Admin: 11/12/18 02:26 Dose: 100 mls Levetiracetam 500 mg/ Device 100 mls @ 200 mls/hr IVPB BID [facility] Last Admin: 11/12/18 08:39 Dose: 100 mls Sodium Chloride (Normal Saline 0.9%) 1,000 mls @ 50 mls/hr IV .Q20H [facility] Last Admin: 11/11/18 22:14 Dose: Not Given Labetalol HCl (Normodyne) 10 mg SLOW IVP Q4H PRN PRN Reason: SBP >170 Last Admin: 11/12/18 09:02 Dose: 10 mg Loperamide HCl (Imodium) 2 mg PO PRN PRN PRN Reason: Diarrhea/Loose Stools Lorazepam (Ativan) 2 mg SLOW IVP Q4H PRN PRN Reason: Anxiety/Agitation Last Admin: 11/08/18 23:49 Dose: 2 mg Methylprednisolone Sodium Succinate (Solu-Medrol) 40 mg IVP Q6HR [facility] Last Admin: 11/12/18 05:11 Dose: 40 mg Metoclopramide HCl (Reglan) 5 mg IVP Q4H PRN PRN Reason: Nausea Miscellaneous Medication (Phos-Nak) 1 pkt PER TUBE NOW [facility] Stop: 11/12/18 13:00 Ondansetron HCl (Zofran) 4 mg IVP Q6H PRN PRN Reason: Nausea/Vomiting Potassium Bicarbonate/Citric Acid (K-Vescent) 25 meq PO BID [facility] Last Admin: 11/12/18 08:35 Dose: 25 meq Propofol (Diprivan) 1,000 mg IV INF PRN; Protocol PRN Reason: TO ACHIEVE GOAL RASS Stop: 12/09/18 03:01 Propofol (Diprivan Bolus) 20 mg IV Q5MIN PRN PRN Reason: BREAKTHROUGH AGITATION Stop: 12/09/18 03:01 Senna/Docusate Sodium (Senokot S) 2 tab PO BID PRN PRN Reason: Constipation Sodium Bicarbonate (Bicarbonate, Sodium) 650 mg PO ASDIR PRN PRN Reason: TUBE OCCLUSION TX Sodium Chloride (Flush - Normal Saline) 10 ml IVF Q12HR [facility] Last Admin: 11/12/18 08:33 Dose: 10 ml Sodium Chloride (Flush - Normal Saline) 10 ml IVF PRN PRN PRN Reason: Saline Flush Spironolactone (Aldactone) 25 mg PO DAILY [facility] Last Admin: 11/12/18 08:31 Dose: 25 mg Sterile Water (Bacteriostatic Water) 1 ml FS PRN PRN PRN Reason: RECONSTITUTION
[2018-11-12] MEDS ORDERED: PHOS-NAK 1 PKT PACK PER TUBE SCH (10:30)
--- NOTE | 2018-11-12 12:55 | PRG ---
DATE OF SERVICE: 11/12/2018 SERVICE: Pulmonary Medicine. INTERVAL HISTORY: The patient is doing fine from respiratory standpoint. Breathing comfortably. From mentation standpoint, she is not doing very well at all. She has made no neurologic recovery over the past 5 days. PHYSICAL EXAMINATION: VITAL SIGNS: Afebrile currently, with T-max 100.3. Pulse 87, blood pressure 168/79, respirations 21, and saturation 98% on 27% FiO2. GENERAL: The patient is comatose. HEENT: Normocephalic and atraumatic. Sclerae are white. Conjunctivae are pink. Oral mucosa is moist without lesions. LUNGS: Very good air entry. No rhonchi, crackles, or wheezing is appreciated. HEART: Normal rate, regular. ABDOMEN: Soft, nontender, and nondistended. Bowel sounds are positive. MUSCULOSKELETAL: No cyanosis or clubbing. No pitting in bilateral lower extremities. NEUROLOGIC: She continues to demonstrate posturing with noxious stimuli to the right lower extremity, bilateral upper extremities. With noxious stimuli in the left lower extremity, she has crossed extensor reflex. Pupils are equal, round , and reactive. She has a good cough, gag, and overbreathes the ventilator comfortably. LABORATORY DATA: WBC increasing to 21,000, hemoglobin 13.5, platelets 228,000. PH 7.48, pCO2 of 32, and PO2 of 75. Basic metabolic profile is essentially unremarkable. Phosphorus 2.1. ASSESSMENT: 1. Acute, massive pulmonary embolism. 2. Pulseless electrical activity secondary to pulmonary embolism. 3. Anoxic brain injury. 4. Burst suppression on EEG. 5. 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 6. Sepsis. DISCUSSION AND PLAN: I will repeat a chest x-ray in the morning. We will put her on empiric coverage for lung and pathogens. We will send urine culture and blood cultures x2. Pulmonary Critical Care will continue to follow along while the patient remains inhouse. Critical care time: 30 minutes. Job ID: [id number] [facility]
[2018-11-12] MEDS ORDERED: Sodium Phosphate 15 MMOL in Sodium Chloride 0.9% 250 ML 250 ML IVPB SCH (13:00)
[2018-11-12] MEDS: Pot Chloride/Pot Bicarb/Cit Ac 25 mEq Effervescent Tablet PO SCH (15:47)
[2018-11-13] MEDS: cloNIDine 0.1 MG TAB PO PRN (01:16)
[2018-11-13] MEDS: Cefepime 1 GM in Sodium Chloride 0.9% 100 ML IVPB SCH ×2 (03:05→14:44)
[2018-11-13 05:04] LABS: Anion Gap 12 mmol/L (10-20); BUN (Urea Nitrogen) 32 mg/dL (9.8-20.1); Calc. Creatinine Clearance 122 mL/min (70-130); Calcium 8.1 mg/dL (7.8-10.44); Carbon Dioxide 24 mmol/L (23-31); Chloride 104 mmol/L (98-107); Estimated GFR-MDRD Greater than 90; Glucose 180 mg/dL (80-115); Potassium 3.6 mmol/L (3.5-5.1); Sodium 136 mmol/L (136-145)
[2018-11-13 05:45] LABS: Band 7 % (5-11); Hemoglobin 11.8 g/dL (12.0-16.0); Lymphocytes 4 % (21-51); MDiff Complete? YES; Mean Corpuscular HGB CONC 32.8 g/dL (32.0-36.0); Mean Corpuscular Hemoglobin 29.8 pg (27.0-31.0); Mean Corpuscular Volume 90.9 fL (78.0-98.0); Mean Platelet Volume 7.6 fL (7.4-10.4); Monocytes 14 % (0-10); Neutrophil 75 % (42-75); Platelet Count 283 thou/uL (130-400); RBC Distribution Width 12.7 % (11.5-14.5); Red Blood Cell (RBC) Count 3.95 mill/uL (4.20-5.40); White Blood Cell (WBC) Count 24.5 thou/uL (4.8-10.8)
[2018-11-13 06:58] LABS: Base Excess (BEa) 0.5 mEq/L (-2.0 to +3.0); CO2 Tension 30.4 mmHg (35.0-45.0); Carboxyhemoglobin (COHb) 1.1 gm% (0.0-3.0); Hemoglobin (Hb) 12.3 g/dL (12.0-16.0); O2 Tension (PaO2) 63.3 mmHg (> 80.0); Potassium - ABG Lab 3.64 mmol/L (3.70-5.30)
[2018-11-13 06:59] LABS: Puncture Site LRA
[2018-11-13] MEDS: Famotidine/PF 20 mg/2ml Vial SLOW IVP SCH ×2 (08:35→20:55)
[2018-11-13] MEDS: Amlodipine 5 MG TAB PO SCH ×2 (08:35→20:55)
[2018-11-13] MEDS: Enoxaparin Sodium 100 MG/ML SYRINGE SC SCH ×2 (08:35→20:55)
[2018-11-13] MEDS: Spironolactone 25 MG TAB PO SCH (08:35)
--- NOTE | 2018-11-13 08:42 | RAD ---
PORTABLE CHEST 1 VIEW: DATE: 11/13/2018. TIME: 3:13 a.m. HISTORY: Sepsis, respiratory failure. FINDINGS: Comparison is made with the exam of 11/10/2018. Endotracheal and nasogastric tube tubes remain in place. The right-sided subclavian central line has been removed in the interim. The heart size is borderline. The lungs are expanded without lobar co nsolidation, pneumothoraces, or pleural effusions. POS: [facility]
--- NOTE | 2018-11-13 13:23 | PRG ---
DATE OF SERVICE: 11/13/2018 SUBJECTIVE: She remains in the ICU on a CPAP. OBJECTIVE: GENERAL: No distress. She is clearly unresponsive. NEUROLOGICAL: Pupils are 2 mm, reactive. She is having decerebrate posturing_ as per the nurses. VITAL SIGNS: Pulse is 85, blood pressure is 161/76, temperature 99, respirations 21. I's and O's have been consistently even. CHEST: Decreased breath sounds. Bilateral rhonchi. CARDIAC: Normal S1, S2. No gallops. ABDOMEN: No masses. LABORATORY DATA: Lytes are normal. PO2 is 63, pCO2 30, pH 7.50 on 21% FiO2 on CPAP. White count 24,000. So far, cultures are negative. ASSESSMENT: 1. Status post pulmonary emboli with _severe_ anoxic injury, EEG shows severe burst pattern. 2. Hypertension. 3. Metastatic sarcoma. ASSESSMENT: Family wants all supportive care. When they arrive, we will discuss about the trach and a PEG, and eventually placement. In the meantime, nutrition and supportive care. One half hour of critical care time. Job ID: [id number] [facility]
--- NOTE | 2018-11-13 14:17 | PDOC.PN ---
- Subjective Encounter Start Date: 11/13/18 Encounter Start Time: 11:45 Subjective: pt intubated - Objective Resuscitation Status - Order Detail: 11/07/18 11:19 Resuscitation Status Routine Resuscitation Status: FULL: Full Resuscitation Vital Signs & Weight: Vital Signs (12 hours) Pulse Resp BP Pulse Ox 11/13/18 14:00 21 H 11/13/18 12:00 20 11/13/18 10:30 77 162/81 H 11/13/18 10:00 23 H 11/13/18 08:35 76 155/79 H 11/13/18 08:00 21 H 11/13/18 07:18 99 11/13/18 06:52 85 161/76 H 11/13/18 06:00 17 11/13/18 04:00 20 Weight Admit Weight 212 lb 15.465 oz Weight 193 lb 5.526 oz Most Recent Monitor Data Heart Rate from ECG 79 NIBP 158/83 NIBP BP-Mean 108 Respiration from ECG 24 SpO2 99 I&O: 11/12/18 11/13/18 11/14/18 06:59 06:59 06:59 Intake Total 3493 1940 150 Output Total 1994 1735 520 Balance 1498 205 -370 Result Diagrams: 11/13/18 04:33 11/13/18 04:33 Phys Exam - Physical Examination Respiratory: no wheezing, no rales, no rhonchi, wheezing present, clear to auscultation bilateral Cardiovascular: RRR, no significant murmur, no rub, gallop, irregular Dx/Plan (1) Sudden cardiac arrest Code(s): I46.9 - CARDIAC ARREST, CAUSE UNSPECIFIED Status: Acute Comment: on admission, s/p ressucitation (2) Acute respiratory failure with hypoxemia Code(s): J96.01 - ACUTE RESPIRATORY FAILURE WITH HYPOXIA Status: Acute Comment: on vent (3) Anoxic brain damage Status: Acute (4) Bilateral pulmonary embolism Code(s): I26.99 - OTHER PULMONARY EMBOLISM WITHOUT ACUTE COR PULMONALE Status : Acute (5) Metastatic sarcoma to lung Code(s): C78.00 - SECONDARY MALIGNANT NEOPLASM OF UNSPECIFIED LUNG; C49.9 - MALIGNANT NEOPLASM OF CONNECTIVE AND SOFT TISSUE, UNSP Status: Chronic Qualifiers: Laterality: right Qualified Code(s): C78.01 - Secondary malignant neoplasm of right lung - Plan pt off sedation does not follow command. spoke with family in length about -: pt's overall current medical issues. family aware that pt has metastatic -: sarcoma. I did discuss her poor prognosis even with trach and peg given her -: metastatic sarcoma. family wants to speak with pulmonary will notifiy nurse -: all questions answered. * . Review of Systems - Review of Systems Other: pt intubated - Medications/Allergies Allergies/Adverse Reactions: Allergies Allergy/AdvReac Type Severity Reaction Status Date / Time No Known Drug Allergies Allergy Verified 11/07/18 15:31 Medications: Current Medications Acetaminophen (Tylenol) 650 mg FL Q6H PRN PRN Reason: Fever Last Admin: 11/10/18 02:32 Dose: 650 mg Acetaminophen (Tylenol) 650 mg PO Q6H PRN PRN Reason: Mild Pain (1-3) Amlodipine Besylate (Norvasc) 5 mg PO BID [facility] Last Admin: 11/13/18 08:35 Dose: 5 mg Lipase/Protease/Amylase ([place] [id number]) 1 cap PER TUBE ASDIR PRN PRN Reason: TUBE OCCLUSION [place] Artificial Tears (Tears Naturale) 2 drop EA EYE PRN PRN PRN Reason: Dry Eyes Bisacodyl (Dulcolax) 10 mg FL DAILYPRN PRN PRN Reason: Constipation Last Admin: 11/11/18 18:17 Dose: 10 mg Clonidine (Catapres) 0.1 mg PO Q4H PRN PRN Reason: SBP Greater Than 170 Last Admin: 11/13/18 01:16 Dose: 0.1 mg Enoxaparin Sodium (Lovenox) 100 mg SC 0900,2100 [facility] Last Admin: 11/13/18 08:35 Dose: 100 mg Famotidine (Pepcid) 20 mg SLOW IVP BID [facility] Last Admin: 11/13/18 08:35 Dose: 20 mg Guaifenesin (Robitussin Sf) 200 mg PO Q4H PRN PRN Reason: Cough Cefepime HCl 1 gm/ Sodium (Chloride) 100 mls @ 200 mls/hr IVPB 0300,1500 [facility] Last Admin: 11/13/18 03:05 Dose: 100 mls Levetiracetam 500 mg/ Device 100 mls @ 200 mls/hr IVPB BID [facility] Last Admin: 05/27/19 08:35 Dose: 100 mls Sodium Chloride (Normal Saline 0.9%) 1,000 mls @ 0 mls/hr IV .Q0M [facility] Labetalol HCl (Normodyne) 10 mg SLOW IVP Q4H PRN PRN Reason: SBP >170 Last Admin: 11/12/18 09:02 Dose: 10 mg Loperamide HCl (Imodium) 2 mg PO PRN PRN PRN Reason: Diarrhea/Loose Stools Metoclopramide HCl (Reglan) 5 mg IVP Q4H PRN PRN Reason: Nausea Ondansetron HCl (Zofran) 4 mg IVP Q6H PRN PRN Reason: Nausea/Vomiting Senna/Docusate Sodium (Senokot S) 2 tab PO BID PRN PRN Reason: Constipation Sodium Bicarbonate (Bicarbonate, Sodium) 650 mg PO ASDIR PRN PRN Reason: TUBE OCCLUSION TX Sodium Chloride (Flush - Normal Saline) 10 ml IVF Q12HR [facility] Last Admin: 11/13/18 08:36 Dose: 10 ml Sodium Chloride (Flush - Normal Saline) 10 ml IVF PRN PRN PRN Reason: Saline Flush Spironolactone (Aldactone) 25 mg PO DAILY [facility] Last Admin: 11/13/18 08:35 Dose: 25 mg Sterile Water (Bacteriostatic Water) 1 ml FS PRN PRN PRN Reason: RECONSTITUTION
[2018-11-14] MEDS: Cefepime 1 GM in Sodium Chloride 0.9% 100 ML IVPB SCH ×2 (02:26→14:52)
[2018-11-14 05:28] LABS: Anion Gap 12 mmol/L (10-20); BUN (Urea Nitrogen) 29 mg/dL (9.8-20.1); Calc. Creatinine Clearance 116 mL/min (70-130); Calcium 7.9 mg/dL (7.8-10.44); Carbon Dioxide 22 mmol/L (23-31); Chloride 106 mmol/L (98-107); Estimated GFR-MDRD Greater than 90; Glucose 189 mg/dL (80-115); Potassium 3.8 mmol/L (3.5-5.1); Sodium 136 mmol/L (136-145)
[2018-11-14 05:39] LABS: Band 3 % (5-11); Hemoglobin 9.9 g/dL (12.0-16.0); Lymphocytes 7 % (21-51); MDiff Complete? YES; Mean Corpuscular HGB CONC 32.4 g/dL (32.0-36.0); Mean Corpuscular Volume 92.6 fL (78.0-98.0); Mean Platelet Volume 7.9 fL (7.4-10.4); Monocytes 4 % (0-10); Neutrophil 86 % (42-75); Platelet Count 286 thou/uL (130-400); RBC Distribution Width 12.9 % (11.5-14.5); Red Blood Cell (RBC) Count 3.31 mill/uL (4.20-5.40); White Blood Cell (WBC) Count 25.3 thou/uL (4.8-10.8)
--- NOTE | 2018-11-14 08:22 | PRG ---
DATE OF SERVICE: 11/14/2018 SUBJECTIVE: Cherise Veloz this morning, remains intubated on the vent on CPAP at this point. OBJECTIVE: VITAL SIGNS: Respiration 23, blood pressure 146/72, temperature 100, saturations 100%. NEUROLOGICAL: Unresponsive. Pupils are 2 mm. She has had no further seizure activity. CHEST: Reveals no wheezing or crackles. CARDIAC: No gallops. No murmurs. ABDOMEN: Distended and soft. LABORATORY DATA: White count 25,000, slight left shift. Platelet count is normal. Lytes are normal. IMPRESSION: 1. Severe anoxic injury, status post prolonged PEA. 2. Bilateral pulmonary emboli. 3. 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 PLAN: Family is going to make a decision regarding trach, PEG versus supportive care and comfort care. At this stage, nothing additional to offer. If they want continued care, she is going to require trach and a PEG, and transfer to a long-term facility. We will discuss when them come. I had a long discussion with the patient's daughter yesterday along with the mother about the prognosis being grave. They understand the issues. We will await their input today. One-half hour of critical care time. Job ID: [id number]
[2018-11-14] MEDS: Amlodipine 5 MG TAB PO SCH ×2 (08:47→22:00)
[2018-11-14] MEDS: Spironolactone 25 MG TAB PO SCH (08:47)
[2018-11-14] MEDS: Famotidine/PF 20 mg/2ml Vial SLOW IVP SCH ×2 (08:48→21:59)
[2018-11-14] MEDS: Enoxaparin Sodium 100 MG/ML SYRINGE SC SCH ×2 (08:49→22:00)
--- NOTE | 2018-11-14 11:22 | PDOC.PN ---
- Subjective Encounter Start Date: 11/14/18 Encounter Start Time: 10:00 -: old records requested/rev pt is unresponsive, on vent - Objective Resuscitation Status - Order Detail: 11/07/18 11:19 Resuscitation Status Routine Resuscitation Status: FULL: Full Resuscitation MAR Reviewed: Yes Vital Signs & Weight: Vital Signs (12 hours) Temp Pulse Resp BP Pulse Ox 11/14/18 11:04 87 147/71 H 11/14/18 09:56 23 H 11/14/18 08:47 83 129/66 11/14/18 08:07 22 H 11/14/18 07:17 22 H 100 11/14/18 06:59 100 F H 11/14/18 06:29 79 136/68 11/14/18 05:54 25 H 11/14/18 04:00 99.4 F 22 H 11/14/18 02:45 78 152/69 H 11/14/18 02:00 23 H 11/14/18 01:00 99.1 F 11/14/18 00:00 101 F H 11/13/18 23:58 25 H Weight Admit Weight 212 lb 15.465 oz Weight 206 lb 2.115 oz Most Recent Monitor Data Heart Rate from ECG 84 NIBP 147/71 NIBP BP-Mean 96 Respiration from ECG 19 SpO2 100 I&O: 11/13/18 11/14/18 11/15/18 06:59 06:59 06:59 Intake Total 1940 2657 35 Output Total 1735 1610 220 Balance 205 1047 -185 Result Diagrams: 11/14/18 04:26 11/14/18 04:26 EKG Reviewed by me: Yes Phys Exam - Physical Examination Constitutional: NAD on vent Neck: no JVD, supple Respiratory: no wheezing, no rales, no rhonchi Cardiovascular: RRR, no significant murmur Gastrointestinal: soft, no distention, positive bowel sounds Musculoskeletal: no edema, pulses present Lymphatic: no nodes Skin: no rash, normal turgor Dx/Plan (1) Sudden cardiac arrest Code(s): I46.9 - CARDIAC ARREST, CAUSE UNSPECIFIED Status: Acute Comment: on admission, s/p ressucitation (2) Acute respiratory failure with hypoxemia Code(s): J96.01 - ACUTE RESPIRATORY FAILURE WITH HYPOXIA Status: Acute Comment: on vent (3) Anoxic brain damage Status: Acute (4) Bilateral pulmonary embolism Code(s): I26.99 - OTHER PULMONARY EMBOLISM WITHOUT ACUTE COR PULMONALE Status : Acute (5) Hypokalemia Code(s): E87.6 - HYPOKALEMIA Status: Resolved (6) Hypophosphatemia Code(s): E83.39 - OTHER DISORDERS OF PHOSPHORUS METABOLISM Status: Acute (7) Hypomagnesemia Code(s): E83.42 - HYPOMAGNESEMIA Status: Resolved (8) Lactic acidosis Code(s): E87.2 - ACIDOSIS Status: Resolved (9) Leucocytosis Code(s): D72.829 - ELEVATED WHITE BLOOD CELL COUNT, UNSPECIFIED Status: Acute (10) Transaminitis Code(s): R74.0 - NONSPEC ELEV OF LEVELS OF TRANSAMNS & LACTIC ACID DEHYDRGNSE Status: Acute (11) Obesity (BMI 30.0-34.9) Code(s): E66.9 - OBESITY, UNSPECIFIED Status: Chronic (12) Metastatic sarcoma to lung Code(s): C78.00 - SECONDARY MALIGNANT NEOPLASM OF UNSPECIFIED LUNG; C49.9 - MALIGNANT NEOPLASM OF CONNECTIVE AND SOFT TISSUE, UNSP Status: Chronic Qualifiers: Laterality: right Qualified Code(s): C78.01 - Secondary malignant neoplasm of right lung - Plan cont current plan of care, respiratory therapy * medication reviewed as below * symptomatic treatment * continue supportive care * ? terminal extubation per family. Review of Systems - Review of Systems Other: unable to review due to encephalopathy - Medications/Allergies Allergies/Adverse Reactions: Allergies Allergy/AdvReac Type Severity Reaction Status Date / Time No Known Drug Allergies Allergy Verified 11/07/18 15:31 Medications: Current Medications Acetaminophen (Tylenol) 650 mg FL Q6H PRN PRN Reason: Fever Last Admin: 11/10/18 02:32 Dose: 650 mg Acetaminophen (Tylenol) 650 mg PO Q6H PRN PRN Reason: Mild Pain (1-3) Last Admin: 11/13/18 23:44 Dose: 650 mg Amlodipine Besylate (Norvasc) 5 mg PO BID [facility] Last Admin: 11/14/18 08:47 Dose: 5 mg Lipase/Protease/Amylase ([place] [id number]) 1 cap PER TUBE ASDIR PRN PRN Reason: TUBE OCCLUSION [place] Artificial Tears (Tears Naturale) 2 drop EA EYE PRN PRN PRN Reason: Dry Eyes Bisacodyl (Dulcolax) 10 mg FL DAILYPRN PRN PRN Reason: Constipation Last Admin: 11/11/18 18:17 Dose: 10 mg Clonidine (Catapres) 0.1 mg PO Q4H PRN PRN Reason: SBP Greater Than 170 Last Admin: 11/13/18 01:16 Dose: 0.1 mg Enoxaparin Sodium (Lovenox) 100 mg SC 0900,2100 [facility] Last Admin: 11/14/18 08:49 Dose: 100 mg Famotidine (Pepcid) 20 mg SLOW IVP BID [facility] Last Admin: 11/14/18 08:48 Dose: 20 mg Guaifenesin (Robitussin Sf) 200 mg PO Q4H PRN PRN Reason: Cough Cefepime HCl 1 gm/ Sodium (Chloride) 100 mls @ 200 mls/hr IVPB 0300,1500 [facility] Last Admin: 11/14/18 02:26 Dose: 100 mls Levetiracetam 500 mg/ Device 100 mls @ 200 mls/hr IVPB BID [facility] Last Admin: 11/14/18 08:48 Dose: 100 mls Sodium Chloride (Normal Saline 0.9%) 1,000 mls @ 0 mls/hr IV .Q0M [facility] Labetalol HCl (Normodyne) 10 mg SLOW IVP Q4H PRN PRN Reason: SBP >170 Last Admin: 11/12/18 09:02 Dose: 10 mg Loperamide HCl (Imodium) 2 mg PO PRN PRN PRN Reason: Diarrhea/Loose Stools Metoclopramide HCl (Reglan) 5 mg IVP Q4H PRN PRN Reason: Nausea Ondansetron HCl (Zofran) 4 mg IVP Q6H PRN PRN Reason: Nausea/Vomiting Senna/Docusate Sodium (Senokot S) 2 tab PO BID PRN PRN Reason: Constipation Sodium Bicarbonate (Bicarbonate, Sodium) 650 mg PO ASDIR PRN PRN Reason: TUBE OCCLUSION TX Sodium Chloride (Flush - Normal Saline) 10 ml IVF Q12HR [facility] Last Admin: 11/14/18 08:49 Dose: 10 ml Sodium Chloride (Flush - Normal Saline) 10 ml IVF PRN PRN PRN Reason: Saline Flush Spironolactone (Aldactone) 25 mg PO DAILY [facility] Last Admin: 11/14/18 08:47 Dose: 25 mg Sterile Water (Bacteriostatic Water) 1 ml FS PRN PRN PRN Reason: RECONSTITUTION
[2018-11-15] MEDS: Cefepime 1 GM in Sodium Chloride 0.9% 100 ML IVPB SCH ×2 (03:39→15:35)
[2018-11-15 05:31] LABS: Anion Gap 11 mmol/L (10-20); BUN (Urea Nitrogen) 26 mg/dL (9.8-20.1); Calc. Creatinine Clearance 122 mL/min (70-130); Calcium 8.1 mg/dL (7.8-10.44); Carbon Dioxide 23 mmol/L (23-31); Chloride 106 mmol/L (98-107); Estimated GFR-MDRD Greater than 90; Glucose 182 mg/dL (80-115); Potassium 3.4 mmol/L (3.5-5.1); Sodium 137 mmol/L (136-145)
[2018-11-15 06:45] LABS: Hemoglobin 8.5 g/dL (12.0-16.0); Mean Corpuscular HGB CONC 32.4 g/dL (32.0-36.0); Mean Corpuscular Hemoglobin 29.9 pg (27.0-31.0); Mean Corpuscular Volume 92.4 fL (78.0-98.0); Mean Platelet Volume 8.2 fL (7.4-10.4); Platelet Count 286 thou/uL (130-400); Red Blood Cell (RBC) Count 2.83 mill/uL (4.20-5.40); White Blood Cell (WBC) Count 22.6 thou/uL (4.8-10.8)
[2018-11-15 06:52] LABS: Band 4 % (5-11); Lymphocytes 14 % (21-51); MDiff Complete? YES; Neutrophil 82 % (42-75)
--- NOTE | 2018-11-15 08:28 | PRG ---
DATE OF SERVICE: 11/15/2018 SUBJECTIVE: Cherise Veloz remains intubated on the vent on the CPAP, shows no signs of any respiratory distress. OBJECTIVE: VITAL SIGNS: Pulse 87, blood pressure 137/62, respirations 19, saturations 100% on FiO2 of 21% CPAP. HEENT: Pupils are 2 mm and reactive. CHEST: Decreased breath sounds. Anterior rhonchi. CARDIAC: Sinus tach. ABDOMEN: Soft. NEUROLOGIC: Unresponsive with some decerebrate posturing. LABORATORY DATA: Unremarkable, except for white count 22,000. IMPRESSION: 1. Status post bilateral pulmonary emboli with associated pulseless electrical activity accounting for anoxic brain injury. 2. Underlying sarcoma with pulmonary metastasis. 3. Once again, the daughter and the mother are going to be coming here to make a decision regarding withdrawal of care versus trach and a PEG. Pulmonary crowe, nothing additional to offer. If they proceed with a trach and PEG, she is going to require long-term placement. We will then eventually switch over to Eliquis. She is on Lovenox now for several days. One-half hour of critical time. Job ID: [id number]
[2018-11-15] MEDS: Amlodipine 5 MG TAB PO SCH ×2 (08:38→20:53)
[2018-11-15] MEDS: Enoxaparin Sodium 100 MG/ML SYRINGE SC SCH ×2 (08:38→20:53)
[2018-11-15] MEDS: Spironolactone 25 MG TAB PO SCH (08:38)
[2018-11-15] MEDS: Famotidine/PF 20 mg/2ml Vial SLOW IVP SCH ×2 (08:38→20:53)
--- NOTE | 2018-11-15 12:06 | PRG ---
DATE OF SERVICE: 11/15/2018 SUBJECTIVE: The patient is seen and examined at bedside. There is not much change in her general status, although she started opening her eyes spontaneously, but she does not follow any commands. OBJECTIVE: VITAL SIGNS: Blood pressure is 165/71, pulse is 81, respiratory rate is 19, and O2 saturation is 96%. HEENT: Her pupils are equal, responds to light in very sluggish way. Sclerae are nonicteric. She is orally intubated. LUNGS: Breath sounds diminished at both bases. HEART: S1 and S2 normal. No S3. No S4. ABDOMEN: Soft and nondistended. Bowel sounds present. EXTREMITIES: No clubbing, cyanosis, or edema. NEUROLOGICAL: The patient is not responding. She does not have any motor function in her upper and lower extremities. NEUROLOGIC: The only thing she does is spontaneously open her eyes, but she does not follow. Does not respond. LABORATORY DATA: White count of 22.6, hemoglobin 8.5, hematocrit 26.1, and platelet count is 286,000. Sodium of 137, potassium 3.4, chloride 106, CO2 of 23, BUN 26, creatinine 0.68, glycemia is ranging from 180 to 193, and calcium 8.1. IMPRESSION: 1. Cardiac arrest secondary to pulseless electrical activity of the heart with resultant anoxic brain injury. 2. Acute respiratory failure with hypoxemia secondary to cardiac arrest. 3. Bilateral pulmonary embolism. 4. Metastatic sarcoma to lung. 5. Dyselectrolytemia. PLAN: The family is supposed to make decision regarding the next step whether we are going to do the PEG and trach. We will continue her current regimen with antiseizure medications, Keppra along with all supportive care in intensive care unit and dose of Lovenox and cefepime. Job ID: [id number]
--- NOTE | 2018-11-15 15:48 | PRG ---
DATE OF SERVICE: 11/15/2018 SUBJECTIVE: Cherise Veloz' daughter was at the bedside. She spoke to the patient's nursing care team today and she has decided to make the patient DNR. She_ does not want trach and PEG, though she states that she still wants to keep the patient intubated on the vent until next Tuesday, which is a week from today. I had a lengthy discussion with the patient's daughter, who is the [id number] and stated that in my opinion, it was not in the best interest of the patient to leave her intubated until next Tuesday. Though she was very adamant about not extubating in the next several days, once again, I am going to make her a DNR as per her wishes, no trach and no PEG. Once again, we will call Palliative Care to explain to the daughter about not continuing unnecessary supportive care. Job ID: [id number] MTDD
[2018-11-16] MEDS: Cefepime 1 GM in Sodium Chloride 0.9% 100 ML IVPB SCH ×2 (03:59→16:27)
--- NOTE | 2018-11-16 09:25 | PRG ---
DATE OF SERVICE: 11/16/2018 SUBJECTIVE: Cherise auguste, this morning, remains intubated on the vent. OBJECTIVE: VITAL SIGNS: Blood pressure is 140/74, saturations are 100% on CPAP, respirations 30, and afebrile. GENERAL: Unresponsive with no sedation. CHEST: Decreased breath sounds. No wheezing. CARDIAC: Normal S1 and S2. No. ABDOMEN: No masses. DIAGNOSTIC DATA: All lab and chest x-ray were discontinued. IMPRESSION: Severe anoxic injury on vent support status post metastatic sarcoma. After having a lengthy discussion with the patient's daughter, who is the power of securities attorney, she has made the patient a DNR. Unfortunately, she still wants to keep the patient intubated until next week. It is unclear why she wants to do that. She is a DNR. Once again, consult Palliative Care to see whether we can try and extubate her soon over the next week. Job ID: [id number]
[2018-11-16] MEDS: Enoxaparin Sodium 100 MG/ML SYRINGE SC SCH ×2 (09:30→21:56)
[2018-11-16] MEDS: Famotidine/PF 20 mg/2ml Vial SLOW IVP SCH ×2 (09:31→21:56)
[2018-11-16] MEDS: Amlodipine 5 MG TAB PO SCH ×2 (09:31→21:56)
[2018-11-16] MEDS: Spironolactone 25 MG TAB PO SCH (09:32)
--- NOTE | 2018-11-16 11:30 | PDOC.PN ---
- Subjective Encounter Start Date: 11/16/18 Encounter Start Time: 09:45 Patient seen and examined. pt is on vent, no overall change in condition, No overnight events - Objective Resuscitation Status - Order Detail: 11/15/18 15:16 Resuscitation Status Routine Resuscitation Status: DNAR: NO Resuscitation Discussed with: DAUGHTER MADE DECISION today MAR Reviewed: Yes Vital Signs & Weight: Vital Signs (12 hours) Pulse Resp BP Pulse Ox 11/16/18 11:17 87 122/58 L 11/16/18 10:00 17 11/16/18 09:31 83 159/73 H 11/16/18 08:00 22 H 96 11/16/18 06:38 90 166/75 H 11/16/18 06:00 15 11/16/18 04:00 18 11/16/18 02:30 91 154/69 H 11/16/18 02:00 21 H 11/16/18 00:00 19 Weight Admit Weight 212 lb 15.465 oz Weight 199 lb 11.821 oz Most Recent Monitor Data Heart Rate from ECG 86 NIBP 150/67 NIBP BP-Mean 94 Respiration from ECG 22 SpO2 98 I&O: 11/15/18 11/16/18 11/17/18 06:59 06:59 06:59 Intake Total 2572 2409 135 Output Total 1290 1410 255 Balance 1282 999 -120 Result Diagrams: 11/15/18 04:02 11/15/18 04:02 EKG Reviewed by me: Yes (nsr) Phys Exam - Physical Examination Constitutional: NAD on vent unresponsive Neck: no JVD, supple Respiratory: no wheezing, no rales, no rhonchi Cardiovascular: RRR, no significant murmur, no rub Gastrointestinal: soft, no distention, positive bowel sounds Musculoskeletal: no edema, pulses present Lymphatic: no nodes Skin: no rash, normal turgor Dx/Plan (1) Sudden cardiac arrest Code(s): I46.9 - CARDIAC ARREST, CAUSE UNSPECIFIED Status: Acute Comment: on admission, s/p ressucitation (2) Acute respiratory failure with hypoxemia Code(s): J96.01 - ACUTE RESPIRATORY FAILURE WITH HYPOXIA Status: Acute Comment: on vent (3) Anoxic brain damage Status: Acute (4) Bilateral pulmonary embolism Code(s): I26.99 - OTHER PULMONARY EMBOLISM WITHOUT ACUTE COR PULMONALE Status : Acute (5) Hypokalemia Code(s): E87.6 - HYPOKALEMIA Status: Resolved (6) Hypophosphatemia Code(s): E83.39 - OTHER DISORDERS OF PHOSPHORUS METABOLISM Status: Acute (7) Hypomagnesemia Code(s): E83.42 - HYPOMAGNESEMIA Status: Resolved (8) Lactic acidosis Code(s): E87.2 - ACIDOSIS Status: Resolved (9) Leucocytosis Code(s): D72.829 - ELEVATED WHITE BLOOD CELL COUNT, UNSPECIFIED Status: Acute (10) Transaminitis Code(s): R74.0 - NONSPEC ELEV OF LEVELS OF TRANSAMNS & LACTIC ACID DEHYDRGNSE Status: Acute (11) Obesity (BMI 30.0-34.9) Code(s): E66.9 - OBESITY, UNSPECIFIED Status: Chronic (12) Metastatic sarcoma to lung Code(s): C78.00 - SECONDARY MALIGNANT NEOPLASM OF UNSPECIFIED LUNG; C49.9 - MALIGNANT NEOPLASM OF CONNECTIVE AND SOFT TISSUE, UNSP Status: Chronic Qualifiers: Laterality: right Qualified Code(s): C78.01 - Secondary malignant neoplasm of right lung - Plan cont current plan of care * as per family they wanted to keep her intubated till next tuesday * medication reviewed as below * symptomatic treatment * continue supportive care * vent as per pulmonary * prognosis is poor. Review of Systems - Review of Systems Other: unable to review as pt is unresponsive - Medications/Allergies Allergies/Adverse Reactions: Allergies Allergy/AdvReac Type Severity Reaction Status Date / Time No Known Drug Allergies Allergy Verified 11/07/18 15:31 Medications: Current Medications Acetaminophen (Tylenol) 650 mg MA Q6H PRN PRN Reason: Fever Last Admin: 11/10/18 02:32 Dose: 650 mg Acetaminophen (Tylenol) 650 mg PO Q6H PRN PRN Reason: Mild Pain (1-3) Last Admin: 11/13/18 23:44 Dose: 650 mg Amlodipine Besylate (Norvasc) 5 mg PO BID [facility] Last Admin: 11/16/18 09:31 Dose: 5 mg Lipase/Protease/Amylase ([place] [id number]) 1 cap PER TUBE ASDIR PRN PRN Reason: TUBE OCCLUSION [place] Artificial Tears (Tears Naturale) 2 drop EA EYE PRN PRN PRN Reason: Dry Eyes Bisacodyl (Dulcolax) 10 mg MA DAILYPRN PRN PRN Reason: Constipation Last Admin: 11/11/18 18:17 Dose: 10 mg Clonidine (Catapres) 0.1 mg PO Q4H PRN PRN Reason: SBP Greater Than 170 Last Admin: 11/13/18 01:16 Dose: 0.1 mg Enoxaparin Sodium (Lovenox) 100 mg SC 0900,2100 [facility] Last Admin: 11/16/18 09:30 Dose: 100 mg Famotidine (Pepcid) 20 mg SLOW IVP BID [facility] Last Admin: 11/16/18 09:31 Dose: 20 mg Guaifenesin (Robitussin Sf) 200 mg PO Q4H PRN PRN Reason: Cough Levetiracetam 500 mg/ Device 100 mls @ 200 mls/hr IVPB BID [facility] Last Admin: 11/16/18 09:30 Dose: 100 mls Sodium Chloride (Normal Saline 0.9%) 1,000 mls @ 0 mls/hr IV .Q0M [facility] Cefepime HCl 1 gm/ Sodium (Chloride) 100 mls @ 200 mls/hr IVPB 0500,1700 [facility] Labetalol HCl (Normodyne) 10 mg SLOW IVP Q4H PRN PRN Reason: SBP >170 Last Admin: 11/12/18 09:02 Dose: 10 mg Loperamide HCl (Imodium) 2 mg PO PRN PRN PRN Reason: Diarrhea/Loose Stools Metoclopramide HCl (Reglan) 5 mg IVP Q4H PRN PRN Reason: Nausea Ondansetron HCl (Zofran) 4 mg IVP Q6H PRN PRN Reason: Nausea/Vomiting Senna/Docusate Sodium (Senokot S) 2 tab PO BID PRN PRN Reason: Constipation Sodium Bicarbonate (Bicarbonate, Sodium) 650 mg PO ASDIR PRN PRN Reason: TUBE OCCLUSION TX Sodium Chloride (Flush - Normal Saline) 10 ml IVF Q12HR [facility] Last Admin: 11/16/18 09:32 Dose: 10 ml Sodium Chloride (Flush - Normal Saline) 10 ml IVF PRN PRN PRN Reason: Saline Flush Spironolactone (Aldactone) 25 mg PO DAILY [facility] Last Admin: 11/16/18 09:32 Dose: 25 mg Sterile Water (Bacteriostatic Water) 1 ml FS PRN PRN PRN Reason: RECONSTITUTION
[2018-11-16] MEDS: Labetalol HCl 100 MG/20 ML VIAL SLOW IVP PRN (18:15)
[2018-11-16] MEDS: cloNIDine 0.1 MG TAB PO PRN (18:15)
[2018-11-17] MEDS: Cefepime 1 GM in Sodium Chloride 0.9% 100 ML IVPB SCH ×2 (05:30→17:08)
[2018-11-17] MEDS: Famotidine/PF 20 mg/2ml Vial SLOW IVP SCH ×2 (08:31→21:08)
[2018-11-17] MEDS: Enoxaparin Sodium 100 MG/ML SYRINGE SC SCH ×2 (08:31→21:08)
[2018-11-17] MEDS: Amlodipine 5 MG TAB PO SCH ×2 (08:31→21:07)
[2018-11-17] MEDS: Spironolactone 25 MG TAB PO SCH (08:32)
--- NOTE | 2018-11-17 08:54 | PRG ---
DATE OF SERVICE: 11/17/2018 SUBJECTIVE: A 63-year-old female, remains intubated on the vent, unresponsive. No sedation. Pupils pinpoint. OBJECTIVE: VITAL SIGNS: Blood pressure 165/77, pulse 106, respiratory rate 20. Afebrile. CHEST: Decreased breath sounds. Minimal rhonchi. CARDIAC: Normal S1 and S2. No gallops. ABDOMEN: No masses. IMPRESSION: Do not resuscitate, status post severe anoxic injury, seizure disorder, metastatic sarcoma. PLAN: At this stage, nothing to offer. Hopefully, family to make a decision regarding withdrawal of care and comfort care. Since she is already a DNR, we will have Palliative Care talk to the family again. Job ID: [id number]
[2018-11-17] MEDS: Labetalol HCl 100 MG/20 ML VIAL SLOW IVP PRN (11:56)
[2018-11-17] MEDS: cloNIDine 0.1 MG TAB PO PRN (11:57)
[2018-11-17] MEDS: Sodium Chloride 0.9% 1,000 ML IV SCH (12:01)
[2018-11-17] MEDS ORDERED: Polyethylene Glycol 3350 17 GM Packet PO PRN (13:55)
--- NOTE | 2018-11-17 13:55 | PDOC.PN ---
- Subjective Encounter Start Date: 11/17/18 Encounter Start Time: 13:53 patient seen and examined. - Objective Resuscitation Status - Order Detail: 11/15/18 15:16 Resuscitation Status Routine Resuscitation Status: DNAR: NO Resuscitation Discussed with: DAUGHTER MADE DECISION today Vital Signs & Weight: Vital Signs (12 hours) Temp Pulse Resp BP Pulse Ox 11/17/18 12:44 77 140/67 11/17/18 12:00 19 11/17/18 11:57 179/79 H 11/17/18 11:56 86 179/78 H 11/17/18 11:00 99.3 F 11/17/18 10:23 77 129/62 11/17/18 10:00 22 H 11/17/18 08:31 81 165/77 H 11/17/18 07:42 82 168/79 H 11/17/18 07:25 99 11/17/18 07:18 20 11/17/18 07:00 99.1 F 11/17/18 06:00 18 11/17/18 04:00 99.7 F H 22 H 11/17/18 02:18 91 130/65 11/17/18 02:00 22 H Weight Admit Weight 212 lb 15.465 oz Weight 203 lb 7.787 oz Most Recent Monitor Data Heart Rate from ECG 76 NIBP 120/61 NIBP BP-Mean 80 Respiration from ECG 22 SpO2 97 I&O: 11/16/18 11/17/18 11/18/18 06:59 06:59 06:59 Intake Total 2409 2528 230 Output Total 1410 1805 585 Balance 999 723 -355 Result Diagrams: 11/15/18 04:02 11/15/18 04:02 Phys Exam - Physical Examination Constitutional: NAD HEENT: PERRLA, moist MMs intubated Neck: no nodes, no JVD Respiratory: no wheezing, no rales Cardiovascular: RRR, no significant murmur, no rub Gastrointestinal: soft, non-tender, no distention Musculoskeletal: no edema, pulses present Dx/Plan (1) Acute respiratory failure with hypoxemia Code(s): J96.01 - ACUTE RESPIRATORY FAILURE WITH HYPOXIA Status: Acute Comment: on vent (2) Anoxic brain damage Status: Acute (3) Hypophosphatemia Code(s): E83.39 - OTHER DISORDERS OF PHOSPHORUS METABOLISM Status: Acute (4) Sudden cardiac arrest Code(s): I46.9 - CARDIAC ARREST, CAUSE UNSPECIFIED Status: Acute Comment: on admission, s/p ressucitation (5) Obesity (BMI 30.0-34.9) Code(s): E66.9 - OBESITY, UNSPECIFIED Status: Chronic - Plan * no changes in plan of care * overall prognosis is poor * the patient's family want to withdraw care on 11/21/2018 once the rest of the family has come * cont current plan of care
[2018-11-18] MEDS: Cefepime 1 GM in Sodium Chloride 0.9% 100 ML IVPB SCH (05:36)
[2018-11-18 07:20] VITALS: BMI 32.8
[2018-11-18] MEDS: Famotidine/PF 20 mg/2ml Vial SLOW IVP SCH ×2 (08:55→20:19)
[2018-11-18] MEDS: Spironolactone 25 MG TAB PO SCH (08:56)
[2018-11-18] MEDS: Amlodipine 5 MG TAB PO SCH ×2 (08:56→20:19)
[2018-11-18] MEDS: Enoxaparin Sodium 100 MG/ML SYRINGE SC SCH ×2 (08:56→20:19)
--- NOTE | 2018-11-18 09:19 | PRG ---
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 OBJECTIVE: HEENT: Pupils are 2 mm. VITAL SIGNS: Respiratory rate 21, blood pressure 160/87, pulse is 93, and temperature is 99. GENERAL: Unresponsive. CHEST: Decreased breath sounds. Rhonchi. CARDIAC: Normal S1 and S2. No gallops. ABDOMEN: No masses. IMPRESSION: 1. Severe anoxic injury. 2. Seizure disorder. 3. Metastatic sarcoma. 4. Respiratory failure. Daughter had wanted to be left the patient on the vent on Tuesday. It is unclear why she wanted to do that at this stage. Supportive care. Nothing additional to offer at this time. Job ID: [id number]
[2018-11-18] MEDS: cloNIDine 0.1 MG TAB PO PRN (13:10)
[2018-11-18] MEDS: Labetalol HCl 100 MG/20 ML VIAL SLOW IVP PRN (13:11)
--- NOTE | 2018-11-18 14:36 | PDOC.PN ---
- Subjective Encounter Start Date: 11/18/18 Encounter Start Time: 14:34 Patient seen and examined, no new issues, no family at bedside. - Objective Resuscitation Status - Order Detail: 11/15/18 15:16 Resuscitation Status Routine Resuscitation Status: DNAR: NO Resuscitation Discussed with: DAUGHTER MADE DECISION today Vital Signs & Weight: Vital Signs (12 hours) Pulse Resp BP Pulse Ox 11/18/18 13:34 21 H 11/18/18 13:11 86 179/71 H 11/18/18 13:10 179/71 H 11/18/18 12:32 86 164/74 H 11/18/18 12:00 22 H 11/18/18 11:34 88 162/111 H 11/18/18 10:00 21 H 11/18/18 08:56 86 162/70 H 11/18/18 08:05 95 162/70 H 11/18/18 08:00 97 11/18/18 07:54 21 H 11/18/18 06:00 22 H 11/18/18 04:00 22 H Weight Admit Weight 212 lb 15.465 oz Weight 204 lb 9.423 oz Most Recent Monitor Data Heart Rate from ECG 75 NIBP 148/70 NIBP BP-Mean 96 Respiration from ECG 19 SpO2 98 I&O: 11/17/18 11/18/18 11/19/18 06:59 06:59 06:59 Intake Total 2528 2056 170 Output Total 1805 2030 720 Balance 723 26 -550 Result Diagrams: 11/15/18 04:02 11/15/18 04:02 Phys Exam - Physical Examination Constitutional: NAD HEENT: PERRLA +intubated Neck: no nodes, no JVD, supple Respiratory: no wheezing, no rales, no rhonchi Cardiovascular: RRR, no significant murmur, no rub Gastrointestinal: soft, non-tender, no distention Musculoskeletal: no edema, pulses present Dx/Plan (1) Acute respiratory failure with hypoxemia Code(s): J96.01 - ACUTE RESPIRATORY FAILURE WITH HYPOXIA Status: Acute Comment: on vent (2) Anoxic brain damage Status: Acute (3) Hypophosphatemia Code(s): E83.39 - OTHER DISORDERS OF PHOSPHORUS METABOLISM Status: Acute (4) Sudden cardiac arrest Code(s): I46.9 - CARDIAC ARREST, CAUSE UNSPECIFIED Status: Acute Comment: on admission, s/p ressucitation (5) Obesity (BMI 30.0-34.9) Code(s): E66.9 - OBESITY, UNSPECIFIED Status: Chronic - Plan * cont current plan of care * family meeting on 11/21/2018 for possible withdrawal of care * no famly at bedside * overall prognosis is poor
[2018-11-18] MEDS: Sodium Chloride 0.9% 1,000 ML IV SCH (17:45)
[2018-11-19] MEDS: Labetalol HCl 100 MG/20 ML VIAL SLOW IVP PRN ×2 (06:13→19:59)
[2018-11-19] MEDS: Amlodipine 5 MG TAB PO SCH ×2 (08:22→20:03)
[2018-11-19] MEDS: Enoxaparin Sodium 100 MG/ML SYRINGE SC SCH ×2 (08:22→20:03)
[2018-11-19] MEDS: Famotidine/PF 20 mg/2ml Vial SLOW IVP SCH ×2 (08:22→20:03)
[2018-11-19] MEDS: Spironolactone 25 MG TAB PO SCH (08:23)
--- NOTE | 2018-11-19 08:54 | PRG ---
DATE OF SERVICE: 11/19/2018 SUBJECTIVE: This morning, she still remains on the vent, intubated, day #11. Family has decided still to keep the patient intubated severe anoxic injury with no response in a vegetative state. OBJECTIVE: VITAL SIGNS: Pulse 71, blood pressure 132/61, respiratory rate 21, saturations 93%, afebrile. CHEST: No wheezing. No crackles. CARDIAC: Normal S1 and S2. No gallops. ABDOMEN: No masses. IMPRESSION: Severe anoxic injury, seizure disorders, metastatic sarcoma, pulmonary emboli. PLAN: Supportive care. Hopefully, extubation and comfort care early next week. TIME SPENT: One-half hour of critical time. Job ID: [id number]
--- NOTE | 2018-11-19 13:45 | PDOC.PN ---
- Subjective Encounter Start Date: 11/19/18 Encounter Start Time: 13:42 Patient seen and examined, no new issues. No family at bedside. - Objective Resuscitation Status - Order Detail: 11/15/18 15:16 Resuscitation Status Routine Resuscitation Status: DNAR: NO Resuscitation Discussed with: DAUGHTER MADE DECISION today Vital Signs & Weight: Vital Signs (12 hours) Temp Pulse Resp BP Pulse Ox 11/19/18 12:00 98.8 F 22 H 11/19/18 11:17 91 173/84 H 11/19/18 10:00 22 H 11/19/18 08:22 71 132/61 11/19/18 08:00 21 H 11/19/18 07:26 100 11/19/18 07:06 71 146/77 H 11/19/18 07:00 99 F 11/19/18 06:13 81 171/76 H 11/19/18 06:00 19 11/19/18 04:00 21 H 11/19/18 02:39 80 11/19/18 02:00 20 Weight Admit Weight 212 lb 15.465 oz Weight 197 lb 15.602 oz Most Recent Monitor Data Heart Rate from ECG 92 NIBP 165/94 NIBP BP-Mean 117 Respiration from ECG 21 SpO2 100 I&O: 11/18/18 11/19/18 11/20/18 06:59 06:59 06:59 Intake Total 2055 2091 Output Total 2029 1999 640 Balance 26 92 -640 Result Diagrams: 11/15/18 04:02 11/15/18 04:02 Phys Exam - Physical Examination Constitutional: NAD intubated HEENT: PERRLA +intubated Neck: no nodes, no JVD Respiratory: no wheezing, no rales, no rhonchi Cardiovascular: RRR, no significant murmur, no rub Gastrointestinal: soft, non-tender, no distention Dx/Plan (1) Acute respiratory failure with hypoxemia Code(s): J96.01 - ACUTE RESPIRATORY FAILURE WITH HYPOXIA Status: Acute Comment: on vent (2) Anoxic brain damage Status: Acute (3) Hypophosphatemia Code(s): E83.39 - OTHER DISORDERS OF PHOSPHORUS METABOLISM Status: Acute (4) Sudden cardiac arrest Code(s): I46.9 - CARDIAC ARREST, CAUSE UNSPECIFIED Status: Acute Comment: on admission, s/p ressucitation (5) Obesity (BMI 30.0-34.9) Code(s): E66.9 - OBESITY, UNSPECIFIED Status: Chronic - Plan * cont current plan of care * family wants to transfer patient to [place], consulted yesterday to see if this is possible, unlikely but will attempt per family request * no changes in plan of care * poor overall prognosis
--- NOTE | 2018-11-20 07:58 | PRG ---
DATE OF SERVICE: 11/20/2018 SUBJECTIVE: Cherise Veloz remains on the vent on the CPAP. Still unresponsive, vegetative state. Pupils are 2 mm. OBJECTIVE: VITAL SIGNS: Pulse 87, blood pressure 171/78, respirations 18, and afebrile. CHEST: Decreased breath sounds. No wheezing. CARDIAC: Normal S1 and S2. No gallops. ABDOMEN: No masses. IMPRESSION: 1. Severe anoxic injury. 2. Respiratory failure. 3. Pulmonary emboli. 4. Sarcoma, metastatic. PLAN: Hopefully, we can extubate and comfort care tomorrow as per the family. Job ID: [id number]
[2018-11-20] MEDS: Spironolactone 25 MG TAB PO SCH (09:45)
[2018-11-20] MEDS: Enoxaparin Sodium 100 MG/ML SYRINGE SC SCH ×2 (09:45→20:56)
[2018-11-20] MEDS: Amlodipine 5 MG TAB PO SCH ×2 (09:45→20:56)
[2018-11-20] MEDS: Famotidine/PF 20 mg/2ml Vial SLOW IVP SCH ×2 (09:45→20:56)
--- NOTE | 2018-11-20 10:24 | PDOC.PN ---
- Subjective Encounter Start Date: 11/20/18 Encounter Start Time: 11:30 Subjective: Patient remains unresponsive on the vent. Noted to have increasing size of -: RUE especially upper arm. No other changes. - Objective Resuscitation Status - Order Detail: 11/15/18 15:16 Resuscitation Status Routine Resuscitation Status: DNAR: NO Resuscitation Discussed with: DAUGHTER MADE DECISION today MAR Reviewed: Yes Vital Signs & Weight: Vital Signs (12 hours) Temp Pulse Resp BP Pulse Ox 11/20/18 10:07 86 175/71 H 11/20/18 09:45 87 151/59 H 11/20/18 08:00 20 95 11/20/18 06:35 87 175/77 H 11/20/18 06:00 20 11/20/18 04:00 99.1 F 20 11/20/18 02:31 87 11/20/18 02:00 23 H 11/20/18 00:00 99.5 F 22 H Weight Admit Weight 212 lb 15.465 oz Weight 195 lb 8.8 oz Most Recent Monitor Data Heart Rate from ECG 79 NIBP 151/59 NIBP BP-Mean 89 Respiration from ECG 17 SpO2 92 I&O: 11/19/18 11/20/18 11/21/18 06:59 06:59 06:59 Intake Total 2091 1797 100 Output Total 1999 2079 284 Balance 92 282 -184 Result Diagrams: 11/15/18 04:02 11/15/18 04:02 Phys Exam - Physical Examination HEENT: moist MMs decent breath sounds bilaterally on the vent, no focal findings Cardiovascular: RRR Gastrointestinal: soft, positive bowel sounds Musculoskeletal: edema present RUE more swollen than LUE Neurological: non-focal, moves all 4 limbs Deviation from normal: unreponsive on the vent Dx/Plan (1) Acute respiratory failure with hypoxemia Code(s): J96.01 - ACUTE RESPIRATORY FAILURE WITH HYPOXIA Status: Acute Comment: on vent (2) Anoxic brain damage Status: Acute (3) Bilateral pulmonary embolism Code(s): I26.99 - OTHER PULMONARY EMBOLISM WITHOUT ACUTE COR PULMONALE Status : Acute (4) Metastatic sarcoma to lung Code(s): C78.00 - SECONDARY MALIGNANT NEOPLASM OF UNSPECIFIED LUNG; C49.9 - MALIGNANT NEOPLASM OF CONNECTIVE AND SOFT TISSUE, UNSP Status: Chronic Qualifiers: Laterality: right Qualified Code(s): C78.01 - Secondary malignant neoplasm of right lung (5) Sudden cardiac arrest Code(s): I46.9 - CARDIAC ARREST, CAUSE UNSPECIFIED Status: Acute Comment: on admission, s/p ressucitation - Plan cont current plan of care, respiratory therapy initial plan was extubation and hospice on Tuesday, however family attempte -: transfer to [facility] over the weekend, which was denied by [facility], -: will need to discuss further with family * . - Discharge Day Encounter end time: 11:40
[2018-11-20] MEDS: Labetalol HCl 100 MG/20 ML VIAL SLOW IVP PRN (10:53)
--- NOTE | 2018-11-21 08:44 | PRG ---
DATE OF SERVICE: 11/21/2018 SUBJECTIVE: Cherise Veloz, this morning, remains unresponsive. She is now day 14 on the vent. Family is apparently going to make a decision about extubation today and comfort care. She is already a DNR. Severe anoxic injury with seizure activity. OBJECTIVE: VITAL SIGNS: Pulse 91, blood pressure 148/82, pulse 104, respirations 18, saturations are 98%. CHEST: Decreased breath sounds. No wheezing. CARDIAC: Normal S1 and S2. No gallops. ABDOMEN: Soft without masses. IMPRESSION: 1. Severe anoxic injury. 2. Pulmonary emboli. 3. Metastatic sarcoma. PLAN: Hopefully, we can extubate her today, transferred out of the ICU. Job ID: [id number]
--- NOTE | 2018-11-21 09:15 | PDOC.PN ---
- Subjective Encounter Start Date: 11/21/18 Encounter Start Time: 12:00 Subjective: Patient terminally extubated this morning after family arrived. She remains -: unresponsive. - Objective Resuscitation Status - Order Detail: 11/15/18 15:16 Resuscitation Status Routine Resuscitation Status: DNAR: NO Resuscitation Discussed with: DAUGHTER MADE DECISION today MAR Reviewed: Yes Vital Signs & Weight: Vital Signs (12 hours) Temp Pulse Resp BP 11/21/18 08:00 99.1 F 20 11/21/18 06:23 91 157/82 H 11/21/18 06:00 22 H 11/21/18 04:00 99.3 F 22 H 11/21/18 02:15 91 160/82 H 11/21/18 02:00 23 H 11/21/18 00:00 23 H 11/20/18 22:13 81 127/54 L 11/20/18 22:00 20 Weight Admit Weight 212 lb 15.465 oz Weight 195 lb 8.8 oz Most Recent Monitor Data Heart Rate from ECG 88 NIBP 152/84 NIBP BP-Mean 106 Respiration from ECG 20 SpO2 97 I&O: 11/20/18 11/21/18 11/22/18 06:59 06:59 06:59 Intake Total 1798 1774 Output Total 2079 2038 200 Balance -282 -265 -200 Result Diagrams: 11/15/18 04:02 11/15/18 04:02 Phys Exam - Physical Examination HEENT: moist MMs loud noises from upper airway obstruction and snoring Respiratory: no rales, no rhonchi loud upper airway noises, increase WOB Cardiovascular: RRR Gastrointestinal: soft, positive bowel sounds no movement of extremities Deviation from normal: completely unresponsive Dx/Plan (1) Acute respiratory failure with hypoxemia Code(s): J96.01 - ACUTE RESPIRATORY FAILURE WITH HYPOXIA Status: Acute Comment: extubated (2) Anoxic brain damage Status: Acute (3) Bilateral pulmonary embolism Code(s): I26.99 - OTHER PULMONARY EMBOLISM WITHOUT ACUTE COR PULMONALE Status : Acute (4) Metastatic sarcoma to lung Code(s): C78.00 - SECONDARY MALIGNANT NEOPLASM OF UNSPECIFIED LUNG; C49.9 - MALIGNANT NEOPLASM OF CONNECTIVE AND SOFT TISSUE, UNSP Status: Chronic Qualifiers: Laterality: right Qualified Code(s): C78.01 - Secondary malignant neoplasm of right lung (5) Sudden cardiac arrest Code(s): I46.9 - CARDIAC ARREST, CAUSE UNSPECIFIED Status: Acute Comment: on admission, s/p ressucitation - Plan compassionate extubation and comfort care today -: transfer to the floor * . - Discharge Day Encounter end time: 12:15
[2018-11-21] MEDS: Enoxaparin Sodium 100 MG/ML SYRINGE SC SCH ×2 (09:25→21:10)
[2018-11-21] MEDS: Spironolactone 25 MG TAB PO SCH (09:26)
[2018-11-21] MEDS: Amlodipine 5 MG TAB PO SCH ×2 (09:26→21:09)
[2018-11-21] MEDS: Famotidine/PF 20 mg/2ml Vial SLOW IVP SCH ×2 (09:26→21:09)
[2018-11-21] MEDS: Morphine 4 MG/ML VIAL IV PRN ×6 (11:29→21:05)
[2018-11-21] MEDS: Lorazepam 2 MG/ML VIAL SLOW IVP PRN ×3 (11:37→20:38)
[2018-11-21] MEDS ORDERED: Scopolamine 1.5 mg/72 hour Patch TD SCH (23:00)
[2018-11-21 23:21] VITALS: BP 172/93; TEMP 98.8
--- NOTE | 2018-11-23 11:33 | DIS ---
DATE OF ADMISSION: 11/07/2018 DATE OF DISCHARGE: 11/22/2018 SUMMARY: REASON FOR ADMISSION: Acute cardiac arrest. CAUSE OF : Severe anoxic brain injury. CONTRIBUTING FACTORS: 1. Cardiac arrest with pulseless electrical activity and later return of spontaneous circulation. 2. Bilateral pulmonary embolism. 3. 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 No known tobacco contribution to the cause of . TIME OF : 1:02 on 11/22/2018. SUMMARY OF HOSPITAL COURSE: This is a 63-year-old female with a history of sarcoma recently diagnosed in the left knee, followed at [facility] as well as a right lung nodule that appears to be a metastasis from the high-grade sarcoma. The patient was at home and had collapsed, had a pulse and was breathing at that time, was brought in by EMS that she entered the doors of the emergency room and she coded. She was found to be in PEA. The patient was given multiple doses of epinephrine and eventually put on epinephrine and Levophed drips. She did have return of spontaneous circulation requiring pressors. A CT scan at that time showed bilateral pulmonary emboli as well as persistent neoplastic mass in her right lung. The patient was put in the ICU. She was slowly weaned off pressors. Couple of days into her hospital course after she is stabilized, she did have an EEG done which showed burst suppression pattern consistent with severe anoxic brain injury leading to persistent vegetative state. The patient was treated in the ICU on the ventilator for 15 days and she showed no evidence of recovery. The family determined at that time that she would not have wanted to have been on long-term life support and they decided against tracheostomy and PEG tube placement and she was extubated, given comfort care measures and then at 1:02 this morning. The patient's body has been discharged to the home. Job ID: [id number]
== END 2018-11-22 01:02 | disposition expired | DRG 296 ==
LOC: EDBD 08:03 → ERS 08:03 → CCU 09:31 → ONC 11-21 22:04
PROVIDERS: ADMIT Internal Medicine; ATTEND Internal Medicine
PROC: 5A12012 Performance of Cardiac Output, Single, Manual (ICD-10-PCS; principal; 2018-11-07)
PROC: 3E033XZ Introduction of Vasopressor into Peripheral Vein, Percutaneous Approach (ICD-10-PCS; 2018-11-07)
PROC: 0BH17EZ Insertion of Endotracheal Airway into Trachea, Via Natural or Artificial Opening (ICD-10-PCS; 2018-11-07)
PROC: 5A1955Z Respiratory Ventilation, Greater than 96 Consecutive Hours (ICD-10-PCS; 2018-11-07)
DX: I46.9 Cardiac arrest, cause unspecified (principal); I26.99 Other pulmonary embolism without acute cor pulmonale; J96.01 Acute respiratory failure with hypoxia; A41.9 Sepsis, unspecified organism; N39.0 Urinary tract infection, site not specified; G93.1 Anoxic brain damage, not elsewhere classified; C78.01 Secondary malignant neoplasm of right lung; C76.52 Malignant neoplasm of left lower limb; I10 Essential (primary) hypertension; E87.6 Hypokalemia; E83.42 Hypomagnesemia; D72.829 Elevated white blood cell count, unspecified; R74.0 Nonspecific elevation of levels of transaminase and lactic acid dehydrogenase [LDH]; E66.9 Obesity, unspecified; Z68.31 Body mass index [BMI] 31.0-31.9, adult; E83.39 Other disorders of phosphorus metabolism; Z66 Do not resuscitate; Z51.5 Encounter for palliative care; G40.909 Epilepsy, unspecified, not intractable, without status epilepticus
CPT/HCPCS: 31500; 36415; 36556; 36680; 51702; 70450; 71045; 71275; 72125; 74177; 80048; 80053; 81003; 81015; 82533; 82805; 83605; 83735; 84100; 84484; 85025; 85610; 85730; 87040; 87086; 92950; 93005; 94002; 94003; 95816; 95819; 96365; 96366; 96368; 96374; 96375; 96376; 99292; J0131; J0171; J0461; J0692; J1644; J1650; J1953; J2060; J2250; J2270; J2704; J2920; J2997; J3010; J3480; J3490; J7050; J7070; Q9966; S0028